=== PATIENT | female | born 1990 | race Two or more races ===

== ENCOUNTER 2025-09-01 13:33 | Inpatient (IN) | payer MEDICAID, OTHER, SELFPAY ==
--- OUTSIDE RECORDS SUMMARY | 2025-08-26 10:15 | XMS_ITS | Encounter Summary ---
Author Organization [facility] r Address [address] [place] [address] Phone Care Team Providers Care Automobile Body Repairer Helper Name Role Phone Devan Mcbride MD, MPH Primary Care Provider [phone]- [phone] Encounter Details Date Type Department Care Team (Late st Contact Info) Description 08/26/2025 10:15 AM EST - 08/26/2025 11:59 PM [facility] Hospital Encounter [facility] Breast Imaging [address]st [address], [address] [place] [address] Devan Mcbride MD, MPH [address] [place] [address] [place] [address] Mass of upper outer quadrant of left breast Discharge Disposition: Home or Self Care Social History Tobacco Use Types Packs/Day Years Used Date Smoking Tobacco: Never Smokeless Tobacco: Never Alcohol Use Standard Drinks/Week Comments Not Currently 0 (1 standard drink = 0.6 oz pur e alcohol) Occasional Housing Answer Date Recorded What is your living situation today? [facility] 04/27/2025 Medications Answer Date Recorded Do you have trouble paying for prescriptions? Ye s 04/27/2025 Utilities Answer Date Recorded Do you have trouble paying f or utilites (heat, electricity, internet, or phone bill)? No 04/27/2025 Caregiving [place] Answer Date Recorded Taking care of a child, elder, or disabled perso n No 04/27/2025 Employment Answer Date Recorded Looking for a job, changing jobs, or getting job training Yes 04/27/2025 Education Answer Date Recorded Getting more education or he lp with school (early child education under 5 years old, high school diploma or GED, college level education) Yes 04/27/2025 Food Answer Date Recorded Within the past 12 months, w ere you worried whether your food would run out before you got money to buy more? Never true 0 04/27/2025 Within the past 12 months, d id the food you bought just didn't last and you didn't have money to get more? Never true Transportation Answer Date Recorded Do you have trouble getting transportation to medical appointments? No 04/27/2025 Social Support Answer Date Recorded Getting more education or he lp with school (early child education under 5 years old, high school diploma or GED, college level education) Yes 04/27/2025 Immigration Answer Date Recorded Accessing resources to address immigration needs Yes 11/29/2023 Finance Answer Date Recorded Managing or growing your mon ey (open a bank account, file taxes, save money, improve credit, buy a house)? Yes 11/29/2023 Technology Answer Date Recorded Using a computer or phone to manage your health (use baseclick, see medical records, make appointments, get refills, message care team) No 11/29/2023 EOV Answer Date Recorded Many patients we see here ar e being hurt, controlled or threatened by someone they have a relationship with. Are you in a relationship where someone is hurting, controlling or scaring you? No 10/06/2024 Comments No Sex and Gender Information Value Date Recorded Sex Assigned at Female 11/21/2023 3:57 PM EST Legal Sex Female 10:09 AM EST Gender Identity Female 11/21/2023 3:57 PM EST Sexual Orientation Straight 04/22/2024 8 :27 AM EDT documented as of this encounter Medications at Time of Discharge acetaminophen (TYLENOL) 325 mg tabletIndications: Menorrhagia with regular cycle Take 2 tablets (650 mg total) by mouth every 6 (six) hours as needed for pain. 100 tablet 1 12/29/2024 blood pressure test kit-large (OMRON 3 SERIES UPPER ARM BLOOD PRESSURE MONITOR) Kit Use to check home blood pressure as directed 1 kit 08/08/2025 clotrimazole (LOTRIMIN) 1 % cream Apply bid to feet 30 g 1 08/17/2025 hydrocortisone 2.5 % ointmentIndication s:Flexural eczema Apply topically 2 (two) times a day. Apply to affected area only for up to 2 weeks at a time, then stop for 1 week. Then can switch to as needed for rash/itching. Continue to use moisturizer regularly to prevent return of symptoms. For neck 60 g 2 01/26/2025 mineral oil-hydrophil petrolat OintIndications:Fl exural eczema Apply to dry skin up to 4 times a day. Especially after bathing/washing 452 g 5 01/26/2025 naproxen (NAPROSYN) 500 mg tabletIndications: Costochondritis Take 1 tablet (500 mg total) by mouth 2 (two) times a day with meals for 21 days. 42 tablet 08/17/2025 multivitamin 27 mg iron- 800 mcg Tab tabletIndications: Encounter for preconception consultation Take 1 tablet by mouth daily. 90 tablet 3 05/04/2025 senna-docusate (SENNOSIDES-DOCUSA TE SODIUM) 8.6-50 mg Take 1 tablet by mouth daily. 30 tablet 1 06/20/2024 triamcinolone (KENALOG) 0.1 % ointmentIndication s:Flexural eczema Apply topically 2 (two) times a day. Apply to rash on breast and abdomen twice daily until resolved. Then stop. 80 g 2 03/18/2025 documented as of this encounter Plan of Treatment Upcoming Encounters Date Type Department Care Team (Late st Contact Info) Description 09/16/2025 10:40 AM EST Office Visit [facility] MEDICINE [address] [place] [address] China Gray PA-C [address] [place] [id number] 09/21/2025 10:15 AM EST Office Visit EDUCATION ANALYST [address] [place] [address] 5TH FLOOR [facility] Microbiological Laboratory [place] [address] Lisa Garcia MD [address] [facility] [place] [address] 10/12/2025 11:00 AM EST Office Visit [facility] [address] [place] [address] Devan Mcbride MD, MPH [address] [place] [address] documented as of this encounter Procedures Procedure Name Priority Date/Time Associated Diagnosis Comments BI US BREAST LIMITED LEFT Routine 08/26/2025 10:50 AM EST Mass of upper outer quadrant of left breast documented in this encounter Results * BI US Left Breast Limited (08/26/2025 10:50 AM EST) [facility] PATIENT HEIGHT 167.6 GE RIS-IC [facility] PATIENT WEIGHT 88.451 GE RIS-IC Anatomical Region Laterality Modality Breast Left Ultrasound 08/26/2025 10:5 9 AM EST Impressions 08/26/2025 12:59 PM EST 1. No focal mammographic or sonographic suspicious mass or abnormality corresponding to focal left breast pain. Clinical follow-up for breast pain is suggested. 2. No mammographic evidence for malignancy in either breast. BI-RADS 1 - Negative METHOD OF DETECTION: NA Recommendation: Clinical follow-up. Age and risk appropriate screening mammography. Clinical follow-up for breast pain is suggested. Findings and recommendations were communicated to the patient by the tissue technologist at the time of the exam . I personally reviewed the study and agree with the dictated report. Electronically signed by: Melody El Signed date and time: 08/26/2025 12:59 PM Narrative 08/26/2025 12:59 PM EST EXAMINATION: BILATERAL DIGITAL DIAGNOSTIC TOMOSYNTHESIS MAMMOGRAPHY AND LEFT BREAST ULTRASOUND INDICATION: Female, 35 years of age presenting for focal left breast pain. COMPARISON: 08/11/2024, BI MAMMO TOMOSYNTHESIS DIAGNOSTIC BILATERAL. TECHNIQUE: Bilateral full field digital mammography and digital breast tomosynthesis was performed and interpreted with the aid of CAD software. Yen scale 2D B-mode and Color-Doppler ultrasound images were obtained with a high-frequency linear array transducer. COMPOSITION: The breasts are heterogeneously dense, which may obscure small masses. FINDINGS: Mammogram: Left breast: Triangular pain marker in the upper outer breast is noted with no focal suspicious mammographic abnormality. Targeted ultrasound was performed for evaluation. No suspicious mass, grouped calcifications, or unexplained architectural distortion. Right breast: No suspicious mass, grouped calcifications, or unexplained architectural distortion. LEFT BREAST ULTRASOUND: Multiple real time ultrasound images were obtained of LEFT breast at the site of clinical abnormality, 12-3 o'clock 1-12 cm from the nipple. No focal cystic or solid lesions are seen, with normal breast stroma. Procedure Note Melody El MD - 08/26/2025 EXAMINATION: BILATERAL DIGITAL DIAGNOSTIC TOMOSYNTHESIS MAMMOGRAPHY AND LEFT BREASTULTRASOUND INDICATION: Female, 35 years of age presenting for focal left breast pain. COMPARISON: 08/11/2024, BI MAMMO TOMOSYNTHESIS DIAGNOSTIC BILATERAL. TECHNIQUE: Bilateral full field digital mammography and digital breast tomosynthesiswas performed and interpreted with the aid of CAD software. Yen scale 2DB-mode and Color-Doppler ultrasound images were obtained with ahigh-frequency linear array transducer. COMPOSITION: The breasts are heterogeneously dense, which may obscure small masses. FINDINGS: Mammogram: Left breast: Triangular pain marker in the upper outer breast is notedwith no focal suspicious mammographic abnormality. Targeted ultrasound wasperformed for evaluation. No suspicious mass, grouped calcifications, orunexplained architectural distortion. Right breast: No suspicious mass, grouped calcifications, or unexplainedarchitectural distortion. LEFT BREAST ULTRASOUND: Multiple real time ultrasound images were obtainedof LEFT breast at the site of clinical abnormality, 12-3 o'clock 1-12 cmfrom the nipple. No focal cystic or solid lesions are seen, with normalbreast stroma. IMPRESSION: 1. No focal mammographic or sonographic suspicious mass or abnormalitycorresponding to focal left breast pain. Clinical follow-up for breastpain is suggested. 2. No mammographic evidence for malignancy in either breast. BI-RADS 1 - Negative METHOD OF DETECTION: NA Recommendation: Clinical follow-up. Age and risk appropriate screeningmammography. Clinical follow-up for breast pain is suggested. Findings and recommendations were communicated to the patient by theimaging technologist at the time of the exam . I personally reviewed the study and agree with the dictated report. Electronically signed by: Melody El Signed date and time: 08/26/2025 12:59 PM Angelika Dugan DO IMG MAMMOGRAPHY ORD ERABLES Final Result documented in this encounter Visit Diagnoses Diagnosis Mass of upper outer quadrant of left breast documented in this encounter Additional Health Concerns Infection Onset Date Last Indicated Resolved Time COVID-19 Rule Out 12/12/2024 12/12/2024 documented as of this encounter Care Teams Automobile Body Repairer Helper Relationship Specialty Start Date End Date Devan Mcbride MD, MPH [address] [place] [address] PCP - General Family Medicine 10/06/24 documented as of this encounter
--- OUTSIDE RECORDS SUMMARY | 2025-08-27 10:00 | XMS_ITS | Encounter Summary ---
Author Organization [facility] r Address [address] [place] [address] Phone Care Team Providers Care Dish Machine Operator Name Role Phone Devan Mcbride MD, MPH Primary Care Provider [phone]- [phone] Reason for Visit * Reason Comments Patient Education HTN RPM Encounter Details Date Type Department Care Team (Late st Contact Info) Description 08/27/2025 10:00 AM EST Clinical Support [facility] [address] [place] [address] Janet Bernstein [address] [place], [place] [id number] Primary hypertension (Primary Dx) Social History Tobacco Use Types Packs/Day Years Used Date Smoking Tobacco: Never Smokeless Tobacco: Never Alcohol Use Standard Drinks/Week Comments Not Currently 0 (1 standard drink = 0.6 oz pur e alcohol) Occasional Housing Answer Date Recorded What is your living situation today? I have a [facility] place to live 04/27/2025 Medications Answer Date Recorded Do you have trouble paying for prescriptions? Ye s 04/27/2025 Utilities Answer Date Recorded Do you have trouble paying f or utilites (heat, electricity, internet, or phone bill)? No 04/27/2025 Caregiving [place] Answer Date Recorded Taking care of a [...] or phone to manage your health (use [facility], see medical records, make appointments, get refills, [...] 3:57 PM EST Sexual Orientation Straight 04/22/2024 8: 27 AM EDT documented as of this encounter Last Filed Vital Signs Vital Sign Reading Time Taken Comments Blood Pressure 121/86 08/27/2025 10:13 AM EST Pulse 84 08/27/2025 10:13 AM EST Temperature - - Respiratory Rate - - Oxygen Saturation - - Inhaled Oxygen Concentration - - Weight - - Height - - Body Mass Index - - documented in this encounter Progress Notes * Janet Bernstein - 08/27/2025 10:00 AM EST Francoise Britt is a 35 y.o. female here for home blood pressure monitoring. BP Goal: 140/90 BP Readings from Last 3 Encounters: 08/17/25 147/90 08/03/25 146/96 05/04/25 138/83 Reason for monitoring referral: Rule out white coat or masked hypertension Education Provided handout on HTN basics/blood pressure categories & reviewed BP goal. Remote Assessment Do you have a smartphone? N/A If yes, how comfortable are you with using it? N/A How is your access to the internet? N/A Do you have someone at home who helps you to access the internet? N/A Pt was offered remote set-up: N/A Pt accepted remote set-up: N/A Remote set-up successful? N/A Monitoring set-up Instructed pt on how to use meter: will take 3 readings in AM and PM for the next 10 days. Educated patient on how to: [] Transfer data electronically [x] Log readings manually Medications Pt takes medication for blood pressure: No Medication names:N/A Pt reports missing doses in the past two weeks? N/A Refill data shows HTN medications filled as prescribed in last 90 days? N/A Food Provided handout on salt intake/DASH diet. Within the past 12 months, has pt worried about running out of money to buy food? Sometimes Does the patient have consistent access to healthy, nutritious food like fresh vegetables, fruit, variety of low-fat protein? Sometimes Challenges to HTN Control For patients with diagnosed HTN -- otherwise delete: Do you feel as though your blood pressure is controlled most of the time (within goal)? N/A What are some of the challenges you face in controlling your blood pressure? N/A Do you have any suggestions for how the team at [facility] can better support you or other patients with blood pressure control? N/A Follow-Up Plan [] Patient will attempt electronic transfer; Security Operations Center Operator will follow up within 72 hours to letthem know if transfer is successful. [x] Patient will complete manual log and drop off readings at the 3rd floor registration desk. [] Security Operations Center Operator will refer to case management for help with phone/internet access. [] Security Operations Center Operator will refer to case management for help with food access. (Note: If patient has [employer] A[employer] plan, HTN or DM/pre-DM dx, and food insecurity, please alert registered nurse hh case manager that they are eligible for [employer] program referral for medically-tailored meals.) documented in this encounter Plan of Treatment Upcoming Encounters Date Type Department Care Team (Late st Contact Info) Description 09/16/2025 10:40 AM EST Office Visit [address] [phone] China Gray PA-C [address] [place] [phone] 09/21/2025 10:15 AM EST Office Visit CUSTOM STOCK MAKER [address] 5TH FLOOR [facility] [place] [address] Lisa Garcia MD [facility] [place] [address] 10/12/2025 11:00 AM EST Office Visit [address] [phone] Devan Mcbride MD, MPH [address] [place] [phone] documented as of this encounter Visit Diagnoses Diagnosis Primary hypertension- Primary Unspecified essential hypertension documented in this encounter Additional Health Concerns Infection Onset Date Last Indicated Resolved Time COVID-19 Rule Out 12/12/2024 12/12/2024 documented as of this encounter Care Teams Dish Machine Operator Relationship Specialty Start Date End Date Devan Mcbride MD, MPH [address] [place] [id number] PCP - General Family Medicine 10/06/24 documented as of this encounter
--- OUTSIDE RECORDS SUMMARY | 2025-08-31 14:53 | XMS_ITS | Encounter Summary ---
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 admission) [2] [3] [4] No family history on file. documented in this encounter ED Notes * Sam Porras RN - 09/01/2025 7:51 AM EST Pt enters my care at shift change. Resting comfortably in stretcher, arousable to spontaneous voice, no distress. Currently on 1:1 safety watch. armored vehicle officer at bedside and environment free from harm. Pt medically cleared per ED attending and an inpatient bed search for +SI attempt. electrical tester used in room - pt tearful, expressing she is not able to contact her mom who lives in [place] and usually speaks to her on what's angel. Per patient, has pt's phone attheir apartment. After inventory of patient's belongings - phone is in belongings bag. Phone given to patient for therapeutic intervention to call momCasey Pozo with [facility] crisis team at bedside to discuss POC and bed search process. Pt listed as self pay in computer - pt states to this RN that she has [employer]. Registration notified to update insurance information. Safety maintained, pt expresses no other needs at this time. Continues to remain on 1:1 sit and inpatient level of care. * Juventino Jin RN - 09/01/2025 7:04 AM EST Pt exits my care and report given to Shikha morgan * Juventino Jin RN - 09/01/2025 12:51 AM EST Assumed care of pt. Report received from Victorino morgan Pt remains on safety watch * Victorino Huber RN - 09/01/2025 12:07 AM EST Pt belongings in bin #3 * Victorino Huber RN - 08/31/2025 5:12 PM EST Pt BIBA from home after ingesting a 50 count bottle of 200mg motrin. Pt portuguese speaking only. Back Order Clerk at bedside. Pt denies SI/HI to this RN and MD during assessment. Pt denies any CP/SOB/F/C. Pt reports hx of bipolar with no medications prescribed by psychiatrist. On assessment, pt is A&Ox4 with no signs of distress. Pt is talking in complete sentences. Pt on monitor, sinus tach, MD made aware. Pt given Activated charcoal as ordered. Abd is soft, round, non distended. consult completed. Labs drawn. Urine sample obtained. Pt on 2:1 safety watch. Dispo pending MD re-eval. Fall precautions in place. Pt denies any questions or needs at this time. * Victorino Huber RN - 08/31/2025 2:54 PM EST From home, placed on section by Jim. Pt had verbal argument earlier today with boyfriend, pt called mom and said that she has nothing left to live for. Pt's boyfriend returned home to find that travis ingested 50 200mg motrin tabs. Belarusian speaking only. Ambulatory on scene A&Ox4. Refusing to answer questions. * Micah Davila MD - 08/31/2025 2:49 PM EST [facility] EMERGENCY DEPARTMENT ED Provider Note Arrival date: 08/31/2025 HISTORY OF PRESENT ILLNESS Discussion with Independent Historian : EMS- report reviewedworked with electrical tester Patient is a 35 y.o. female with a history of high blood pressure and bipolar disorder the emergency department for evaluation of an overdose. Reportedly took 50 tablets of 200 mg ibuprofen. EMS wascalled. Brought to the ED. Reportedly took the medication 30 minutes prior to arrival. States she has multiple stressors at home. Denying any homicidal ideations no auditory hallucinations. Tearful throughout the exam. PHYSICAL EXAM ED Triage Vitals [08/31/25 1458] BP Heart Rate Resp Temp SpO2 (!) 164/97 (!) 99 15 -- 100 % Physical Exam Vitals reviewed. Constitutional: Appearance: Normal appearance. HENT: Head: Normocephalic and atraumatic. Mouth: Mucous membranes are moist. Pulmonary: Effort: Pulmonary effort is normal. Respirations: Clear to auscultation bilaterally Cardiac: Tachycardic Abdominal: Soft, non-tender x 4 quad Musculoskeletal: General: No swelling. Normal range of motion. Cervical back: Normal range of motion. Skin: General: Skin is warm and dry. Neurological: General: No focal deficit present. Mental Status: Alert and oriented to person, place, and time. Strength: 5/5 x 4 limbs Sensation: Intact. Psychiatric: Tearful RESULTS Labs BASIC METABOLIC PANEL - Abnormal Result Value Ref Range Sodium 138 135 - 146 mmol/L Potassium 4.5 3.4 - 5.2 mmol/L Chloride 101 98 - 110 mmol/L Total CO2/Bicarbonate 26 24 - 32 mmol/L Anion Gap 11 2 - 15 mmol/L BUN 12 6 - 20 mg/dL Creatinine, Blood 0.80 0.50 - 1.10 mg/dL Glucose, Blood 107 (*) 70 - 100 mg/dL Calcium 9.8 8.5 - 10.5 mg/dL Estimated GFR(CKD-EPI) 97 >=60 mL/min/BSA TOXICOLOGY SCREEN, BLOOD - Abnormal Acetaminophen Result,Blood <5 (*) 10 - 30 ug/mL Alcohol <10 <10 mg/dL Salicylate Level, Blood <1 <30 mg/dL CBC AND DIFFERENTIAL - Abnormal WBC 10.85 (*) 3.90 - 10.80 K/uL RBC 5.21 4.20 - 5.60 M/uL Hemoglobin 13.7 12.0 - 15.2 g/dL Hematocrit 43.0 35.0 - 45.0 % MCH 26.3 25.6 - 32.2 pg MCHC 31.9 (*) 32.0 - 36.0 g/dL MCV 83 82 - 102 fL RDW 13.2 12.0 - 15.0 % RDW-SD 39.4 32.9 - 69.6 fL Platelet Count 240 150 - 400 K/uL MPV 11.1 8.5 - 13.0 fL Neutrophil 81.7 (*) 43.0 - 74.0 % Lymphocyte 14.3 (*) 17.0 - 47.0 % Monocyte 3.1 (*) 5.0 - 12.0 % Eosinophil 0.3 0.1 - 6.0 % Basophil 0.3 0.0 - 2.0 % Immature Granulocyte ([place], Myelo, Promyelocyte) 0.3 0.0 - 5.0 % Absolute Neutrophil Count 8.87 (*) 1.50 - 8.10 K/uL Absolute Immature Granulocyte ([place], Myelo, Promyelocyte) 0.03 0.00 - 0.66 K/uL Absolute Lymphocyte Count 1.55 0.95 - 4.20 K/uL Absolute Monocyte Count 0.34 0.20 - 1.20 K/uL Absolute Eosinophil Count 0.03 (*) 0.06 - 0.60 K/uL Absolute Basophil Count 0.03 0.01 - 0.12 K/uL HCG, SERUM, QUALITATIVE - Normal HCG, Qualitative, Serum Negative Negative SARS COV2/INFLUENZA A/B AND RSV - Normal Coronavirus SARS-CoV-2 Negative Negative Influenza A Negative Negative Influenza B Negative Negative RSV by PCR Negative Negative Narrative: Test performed with [employer] GeneXpert SARS-CoV-2 PCR assay. Negative results do not preclude SARS-CoV-2 infections and should not be used as the sole basis for treatment or other patient management decisions. DRUG SCREEN, URINE Amphetamines Screen, Urine Negative Negative Barbiturates Screen, Urine Negative Negative Benzodiazepine Screen, Urine Negative Negative Buprenorphine Screen, Urine Negative Negative Cannabinoids Screen, Urine Negative Negative Cocaine Metabolite Screen, Urine Negative Negative Fentanyl Screen, Urine Negative Negative Methadone Screen, Urine Negative Negative Opiates Screen, Urine Negative Negative Oxycodone Screen, Urine Negative Negative Comment Comment: The cut-off concentration for a positive result for each drug is listed below: Drug Cut-off value Amphetamines >1000 ng/mL Barbiturates >200 ng/mL Benzodiazepines >300 ng/mL Buprenorphine >5 ng/mL Cannabinoids >50 ng/mL Cocaine >300 ng/mL Fentanyl >5.0 ng/mL Opiates >300 ng/mL Methadone >300 ng/mL Oxycodone >100 ng/mL This is only a screening; positive results are not confirmed by a second method; The results must be used for medical purposes only. ACETAMINOPHEN LEVEL CBC AND DIFFERENTIAL Narrative: The following orders were created for panel order CBC and Differential. Procedure Abnormality Status --------- ------ CBC and Differential[[id number]] Abnormal Final result Please view results for these tests on the individual orders. and ECG 12 lead Result Date: 08/31/2025 See ED note for ECG result information. MEDICAL DECISION MAKING Differential Diagnosis Includes : Suicide attempt overdose intentional harm depression This is a 35-year-old in the emergency department for evaluation of a overdose. Reportedly of ibuprofen. Will attempt to confirm with family. Ordered for charcoal as the ingestion happened less than 2 hours prior to arrival. Sitter per protocol. Patient evaluated by behavioral health. Medically cleared. Placed in observation. Awaiting psychiatric placement. ED Course as of 08/31/25 1754 Mon Aug 31, 2025 1553 Independent ED EKG interpretation: Normal sinus rhythm at 69 normal axis normal intervals, no acute ischemia [AL] 1726 Discussed with behavioral health: Needs inpatient level of care [AL] 1741 Patient is medically cleared [AL] 1741 Acetaminophen Result,Blood(!): <5 [AL] ED Course User Index [AL] Micah Davila MD Independent interpretation of studies : EKG: see included interpretation Review of Outside Records : PDMP: No concerning prescribing pattern Discussion with Other Healthcare Provider : Behavioral Health provider: Patient's presentation and condition management discussed Escalation of care, including admission/Obs considered : Placed in observation status until behavioral health placement can be obtained Critical Care Procedure Note Authorized and Performed by: Micah Davila MD Total critical care time: Approximately 75 minutes Due to a high probability of clinically significant, life threatening deterioration, the patient required my highest level of preparedness to intervene emergently and I personally spent this criticalcare time directly and personally managing the patient. This critical care time included obtaining a history; examining the patient; pulse oximetry; ordering and review of studies; arranging urgent treatment with development of a management plan; evaluation of patient's response to treatment; frequent reassessment; and, discussions with other providers. This critical care time was performed to assess and manage the high probability of imminent, life-threatening deterioration that could result in multi-organ failure. It was exclusive of separately billable procedures and treating other patients and teaching time. Please see MDM section and the rest of the note for further information on patient assessment and treatment. Clinical Impression Intentional ibuprofen overdose, initial encounter ([facility]) (Primary) Suicide attempt ([facility]) Micah Davila MD 08/31/25 223 documented in this encounter Miscellaneous Notes * ED Obs Note - Rivas Ko MD - 09/01/2025 8:49 AM EST ED OBSERVATION NOTE Date of service: 08/31/2025 [facility] EMERGENCY DEPARTMENT EMERGENCY DEPARTMENT ENCOUNTER HPI MDM contains a medically complete HPI; please see initial HPI/note for further details. PHYSICAL EXAM Vitals: 09/01/25 0527 BP: 120/70 Pulse: 70 Resp: 16 SpO2: 100% General: No acute distress HEENT: Normal Appearing Eyelids Neck: Supple Respiratory: No respiratory distress Cardio-Vascular: Normal Rate Abdomen: Non-distended Neurological: No focal neurological deficits appreciated Skin: Warm, Dry ED COURSE & MEDICAL DECISION MAKING Labs BASIC METABOLIC PANEL - Abnormal Result Value Ref Range Sodium 138 135 - 146 mmol/L Potassium 4.5 3.4 - 5.2 mmol/L Chloride 101 98 - 110 mmol/L Total CO2/Bicarbonate 26 24 - 32 mmol/L Anion Gap 11 2 - 15 mmol/L BUN 12 6 - 20 mg/dL Creatinine, Blood 0.80 0.50 - 1.10 mg/dL Glucose, Blood 107 (*) 70 - 100 mg/dL Calcium 9.8 8.5 - 10.5 mg/dL Estimated GFR(CKD-EPI) 97 >=60 mL/min/BSA TOXICOLOGY SCREEN, BLOOD - Abnormal Acetaminophen Result,Blood <5 (*) 10 - 30 ug/mL Alcohol <10 <10 mg/dL Salicylate Level, Blood <1 <30 mg/dL CBC AND DIFFERENTIAL - Abnormal WBC 10.85 (*) 3.90 - 10.80 K/uL RBC 5.21 4.20 - 5.60 M/uL Hemoglobin 13.7 12.0 - 15.2 g/dL Hematocrit 43.0 35.0 - 45.0 % MCH 26.3 25.6 - 32.2 pg MCHC 31.9 (*) 32.0 - 36.0 g/dL MCV 83 82 - 102 fL RDW 13.2 12.0 - 15.0 % RDW-SD 39.4 32.9 - 69.6 fL Platelet Count 240 150 - 400 K/uL MPV 11.1 8.5 - 13.0 fL Neutrophil 81.7 (*) 43.0 - 74.0 % Lymphocyte 14.3 (*) 17.0 - 47.0 % Monocyte 3.1 (*) 5.0 - 12.0 % Eosinophil 0.3 0.1 - 6.0 % Basophil 0.3 0.0 - 2.0 % Immature Granulocyte ([place], Myelo, Promyelocyte) 0.3 0.0 - 5.0 % Absolute Neutrophil Count 8.87 (*) 1.50 - 8.10 K/uL Absolute Immature Granulocyte ([place], Myelo, Promyelocyte) 0.03 0.00 - 0.66 K/uL Absolute Lymphocyte Count 1.55 0.95 - 4.20 K/uL Absolute Monocyte Count 0.34 0.20 - 1.20 K/uL Absolute Eosinophil Count 0.03 (*) 0.06 - 0.60 K/uL Absolute Basophil Count 0.03 0.01 - 0.12 K/uL ACETAMINOPHEN LEVEL - Abnormal Acetaminophen Result,Blood <5 (*) 10 - 30 ug/mL HCG, SERUM, QUALITATIVE - Normal HCG, Qualitative, Serum Negative Negative SARS COV2/INFLUENZA A/B AND RSV - Normal Coronavirus SARS-CoV-2 Negative Negative Influenza A Negative Negative Influenza B Negative Negative RSV by PCR Negative Negative Narrative: Test performed with [employer] GeneXpert SARS-CoV-2 PCR assay. Negative results do not preclude SARS-CoV-2 infections and should not be used as the sole basis for treatment or other patient management decisions. DRUG SCREEN, URINE Amphetamines Screen, Urine Negative Negative Barbiturates Screen, Urine Negative Negative Benzodiazepine Screen, Urine Negative Negative Buprenorphine Screen, Urine Negative Negative Cannabinoids Screen, Urine Negative Negative Cocaine Metabolite Screen, Urine Negative Negative Fentanyl Screen, Urine Negative Negative Methadone Screen, Urine Negative Negative Opiates Screen, Urine Negative Negative Oxycodone Screen, Urine Negative Negative Comment Comment: The cut-off concentration for a positive result for each drug is listed below: Drug Cut-off value Amphetamines >1000 ng/mL Barbiturates >200 ng/mL Benzodiazepines >300 ng/mL Buprenorphine >5 ng/mL Cannabinoids >50 ng/mL Cocaine >300 ng/mL Fentanyl >5.0 ng/mL Opiates >300 ng/mL Methadone >300 ng/mL Oxycodone >100 ng/mL This is only a screening; positive results are not confirmed by a second method; The results must be used for medical purposes only. CBC AND DIFFERENTIAL Narrative: The following orders were created for panel order CBC and Differential. Procedure Abnormality Status --------- ------ CBC and Differential[[id number]] Abnormal Final result Please view results for these tests on the individual orders. No orders to display 35-year-old female in ED observation for psychiatric evaluation after ibuprofen overdose. Medicallycleared from the standpoint of such. The patient's initial ED note, vital signs, and lab results were reviewed and interpreted. The patient was reevaluated. I agree with medical clearance. Patient's behavioral condition continues to be unstable. The patient requires further observation to help determine final disposition. We will monitor the patient for significant changes in medical or psychiatric status, observe and treat for agitation, psychosis or withdrawal, coordinate care with the mental health team and ensure the patient'ssafety. Psychiatry has completed their evaluation. They have found a bed for the patient at [facility]. Accepting MD Lopez. Will transfer by S[employer] farm product purchaser utilized. Clinical Impression Intentional ibuprofen overdose, initial encounter ([facility]) (Primary) Suicide attempt ([facility]) Rivas Ko MD 09/01/25 1006 documented in this encounter Plan of Treatment Not on file documented as of this encounter Procedures Procedure Name Priority Date/Time Associated Diagnosis Comments ACETAMINOPHEN LEVEL STAT 08/31/2025 5 :48 PM EST ECG 12-LEAD STAT 08/31/2025 3:49 PM EST CBC AND DIFFERENTIAL STAT 08/31/2025 3:46 PM EST TOXICOLOGY SCREEN, BLOOD STAT 08/31/2025 3:46 PM EST CBC AND DIFFERENTIAL STAT 08/31/2025 3:46 PM EST HCG, SERUM, QUALITATIVE STAT 08/31/2025 3:46 PM EST BASIC METABOLIC PANEL STAT 08/31/2025 3:46 PM EST SARS COV2/INFLUENZA A/B AND RSV STAT 08/31/2025 3:41 PM EST DRUG SCREEN, URINE STAT 08/31/2025 3: 40 PM EST documented in this encounter Results * (ABNORMAL) Acetaminophen Level (08/31/2025 5:48 PM EST) Acetaminophen Result,Blood <5(L) 10 - 30 ug/mL 08/31/2025 6:42 PM EST [facility] Blood PERIPHERAL BLOOD SPECIMEN / Unknown Venipuncture / Unknown 08/31/2025 5:48 PM EST 08/31/2025 5:56 PM EST Micah Davila MD LAB BLOOD ORDERABLES Final Res ult [facility] [address] [place] [address], [place] * ECG 12 lead (08/31/2025 3:49 PM EST) 08/31/2025 3:50 PM EST Narrative [facility] CV BIDM ECG - 08/31/2025 3:49 PM EST See ED note for ECG result information. us Micah Davila MD ECG ORDERABLES Final Result [facility]IL[facility] CV BIDM ECG * (ABNORMAL) CBC and Differential (08/31/2025 3:46 PM EST) WBC 10.85(H) 3.90 - 10.80 K/uL 08/31/2025 4:10 PM [facility] RBC 5.21 4.20 - 5.60 M/uL 08/31/2025 4:10 PM [facility] Hemoglobin 13.7 12.0 - 15.2 g/dL 08/31/2025 4:10 PM [facility] Hematocrit 43.0 35.0 - 45.0 % 08/31/2025 4:10 PM [facility] MCH 26.3 25.6 - 32.2 pg 08/31/2025 4:10 PM [facility] MCHC 31.9(L) 32.0 - 36.0 g/dL 08/31/2025 4:10 PM [facility] MCV 83 82 - 102 fL 08/31/2025 4:10 PM [facility] RDW 13.2 12.0 - 15.0 % 08/31/2025 4:10 PM [facility] RDW-SD 39.4 32.9 - 69.6 fL 08/31/2025 4:10 PM [facility] Platelet Count 240 150 - 400 K/uL 08/31/2025 4:10 PM [facility] MPV 11.1 8.5 - 13.0 fL 08/31/2025 4:10 PM [facility] Neutrophil 81.7(H) 43.0 - 74.0 % 08/31/2025 4:10 PM [facility] Lymphocyte 14.3(L) 17.0 - 47.0 % 08/31/2025 4:10 PM [facility] Monocyte 3.1(L) 5.0 - 12.0 % 08/31/2025 4:10 PM [facility] Eosinophil 0.3 0.1 - 6.0 % 08/31/2025 4:10 PM [facility] Basophil 0.3 0.0 - 2.0 % 08/31/2025 4:10 PM [facility] Immature Granulocyte ([place], Myelo, Promyelocyte) 0.3 0.0 - 5.0 % 08/31/2025 4:10 PM [facility] Absolute Neutrophil Count 8.87(H) 1.50 - 8.10 K/uL 08/31/2025 4:10 PM [facility] Absolute Immature Granulocyte ([place], Myelo, Promyelocyte) 0.03 0.00 - 0.66 K/uL 08/31/2025 4:10 PM [facility] Absolute Lymphocyte Count 1.55 0.95 - 4.20 K/uL 08/31/2025 4:10 PM [facility] Absolute Monocyte Count 0.34 0.20 - 1.20 K/uL 08/31/2025 4:10 PM [facility] Absolute Eosinophil Count 0.03(L) 0.06 - 0.60 K/uL 08/31/2025 4:10 PM [facility] Absolute Basophil Count 0.03 0.01 - 0.12 K/uL 08/31/2025 4:10 PM [facility] Blood PERIPHERAL BLOOD SPECIMEN / Unknown Venipuncture / Unknown 08/31/2025 3:46 PM EST 08/31/2025 4:03 PM EST us Micah Davila MD LAB BLOOD ORDERABLES Final Res ult [facility] [address] [place] [address], [place] * HCG, serum, QUALitative (08/31/2025 3:46 PM EST) Pathologist [facility] HCG, Qualitative, Serum Negative Negative 08/31/2025 4:38 PM EST [facility] Blood PERIPHERAL BLOOD SPECIMEN / Unknown Venipuncture / Unknown 08/31/2025 3:46 PM EST 08/31/2025 4:03 PM EST us Micah Davila MD LAB BLOOD ORDERABLES Final Res ult Performing Organization Address [facility] Co de Phone Number [facility] [address] [place] [address], [place] * (ABNORMAL) Plasma Toxicology Screen (08/31/2025 3:46 PM EST) [facility] Acetaminophen Result,Blood <5(L) 10 - 30 ug/mL 08/31/2025 4:38 PM EST [facility] Alcohol <10 <10 mg/dL 08/31/2025 4:38 PM [facility] Salicylate Level, Blood <1 <30 mg/dL 08/31/2025 4:38 PM [facility] Blood PERIPHERAL BLOOD SPECIMEN / Unknown Venipuncture / Unknown 08/31/2025 3:46 PM EST 08/31/2025 4:03 PM EST us Micah Davila MD LAB BLOOD ORDERABLES Final Res ult Performing Organization Address [facility] de Phone Number [facility] [address] [place] [address], [place] * (ABNORMAL) Basic Metabolic Panel (08/31/2025 3:46 PM EST) [facility] Sodium 138 135 - 146 mmol/L 08/31/2025 4:35 PM [facility] Potassium 4.5 3.4 - 5.2 mmol/L 08/31/2025 4:35 PM [facility] Chloride 101 98 - 110 mmol/L 08/31/2025 4:35 PM [facility] Total CO2/Bicarbonat e 26 24 - 32 mmol/L 08/31/2025 4:35 PM [facility] Anion Gap 11 2 - 15 mmol/L 08/31/2025 4:35 PM [facility] BUN 12 6 - 20 mg/dL 08/31/2025 4:35 PM [facility] Creatinine, Blood 0.80 0.50 - 1.10 mg/dL 08/31/2025 4:35 PM [facility] Glucose, Blood 107(H) 70 - 100 mg/dL 08/31/2025 4:35 PM [facility] Calcium 9.8 8.5 - 10.5 mg/dL 08/31/2025 4:35 PM [facility] Estimated GFR(CKD-EPI) 97 >=60 mL/min/BSA 08/31/2025 4:35 PM [facility] Blood PERIPHERAL BLOOD SPECIMEN / Unknown Venipuncture / Unknown 08/31/2025 3:46 PM EST 08/31/2025 4:03 PM EST us Micah Davila MD LAB BLOOD ORDERABLES Final Res ult [facility] [address] [place] [address], * Covid/Flu/RSV (Rapid) (08/31/2025 3:41 PM EST) Coronavirus SARS-CoV-2 Negative Negative 08/31/2025 4:49 PM [facility] Influenza A Negative Negative 08/31/2025 4:49 PM [facility] Influenza B Negative Negative 08/31/2025 4:49 PM [facility] RSV by PCR Negative Negative 08/31/2025 4:49 PM [facility] Respiratory SWAB OF INTERNAL NOSE / Unknown Collection / Unknown 08/31/2025 3:41 PM EST 08/31/2025 3:52 PM EST [facility] - 08/31/2025 4:49 PM EST Test performed with [employer] Gene[employer]pert SARS-CoV-2 PCR assay. Negative results do not preclude SARS-CoV-2 infections and should not be used as the sole basis for treatment or other patient management decisions. us Micah Davila MD BODY FLUIDS AND STOOLS ORDERAB LES Final Result Performing Organization Address [facility]/ZIP Co de Phone Number [facility] [address] [place] [address], [place] * Drug Screen, Urine (08/31/2025 3:40 PM EST) Amphetamines Screen, Urine Negative Negative 08/31/2025 4:52 PM [facility] Barbiturates Screen, Urine Negative Negative 08/31/2025 4:52 PM [facility] Benzodiazepine Screen, Urine Negative Negative 08/31/2025 4:52 PM [facility] Buprenorphine Screen, Urine Negative Negative 08/31/2025 4:52 PM [facility] Cannabinoids Screen, Urine Negative Negative 08/31/2025 4:52 PM [facility] Cocaine Metabolite Screen, Urine Negative Negative 08/31/2025 4:52 PM [facility] Fentanyl Screen, Urine Negative Negative 08/31/2025 4:52 PM [facility] Methadone Screen, Urine Negative Negative 08/31/2025 4:52 PM [facility] Opiates Screen, Urine Negative Negative 08/31/2025 4:52 PM [facility] Oxycodone Screen, Urine Negative Negative 08/31/2025 4:52 PM [facility] Comment 08/31/2025 4:52 PM [facility] Comment: The cut-off concentration for a positive result for each drug is listed below: Drug Cut-off value Amphetamines >1000 ng/mL Barbiturates >200 ng/mL Benzodiazepines >300 ng/mL Buprenorphine >5 ng/mL Cannabinoids >50 ng/mL Cocaine >300 ng/mL Fentanyl >5.0 ng/mL Opiates >300 ng/mL Methadone >300 ng/mL Oxycodone >100 ng/mL This is only a screening; positive results are not confirmed by a second method; The results must be used for medical purposes only. Urine URINE SPECIMEN / Unknown Collection / Unknown 08/31/2025 3:40 PM EST 08/31/2025 3:53 PM EST us Micah Davila MD URINE ORDERABLES Final Result Performing Organization Address [facility]/State/ZIP Co de Phone Number [facility] [address] [place] [address], [place] documented in this encounter Visit Diagnoses Diagnosis Intentional ibuprofen overdose, initial encounter ([facility])- Primary Suicide attempt ([facility]) Suicide and self-inflicted injury by unspecified means Depression, unspecified depression type documented in this encounter Administered Medications Inactive Administered Medications - up to 3 most recent administrations Medication Order MAR Action Action Date Dose Rate Site activated charcoal-sorbitoL (ACTIDOSE-SORBITOL) 50 gram/240 mL suspension 50 g 50 g, Oral, Once, 1 dose, On 08/31/25 at 1533 Given 08/31/2025 3:47 PM EST 50 g documented in this encounter Active and Recently Administered Medications Times are shown in EST. Scheduled Medication Order 08/30/2025 08/31/2025 09/01/2025 activated charcoal-sorbitoL (ACTIDOSE-SORBITOL) 50 gram/240 mL suspension 50 g (COMPLETED) 50 g, Oral, Once, 1 dose, On Sun08/31/25 at 1533 1547 (Given - Provider: Brooklyn Huber RN) documented in this encounter Additional Health Concerns Infection Onset Date Last Indicated Resolved Time Rule-Out Respiratory Virus 08/31/2025 08/31/2025 1 10/31/2024 4:49 PM EST documented as of this encounter Care Teams Piledriver Carpenter Relationship Specialty Start Date End Date Unknown, Provider, [address] [place] [id number] PCP - General 08/31/25 documented as of this encounter
[2025-09-01 14:00] VITALS: BP 172/94; PULSE 94; RESP 18; TEMP 36.6; O2SAT 100
[2025-09-01 14:26] VITALS: BMI 30.3
--- NOTE | 2025-09-01 15:17 | P.HPPS_ITS ---
HPI Date of Service: 09/01/25 Chief Complaint: depression, unspecified Sources of Information: patient interviewed, chart reviewed and crisis/core team assessment reviewed HPI Subjective Notes: Lyman Warning and Conditional Voluntary Narrative: Patient is a 35 year old female with hx of Bipolar d/o, who presented to ER d/t overdose on ibuprofen secondary to verbal argument with boyfriend. Per crisis report, pt had a verbal argument with boyfriend; pt called her mother and said she has nothing left to live for . Patient reports she ingested a whole bottle of pills due to ongoing stressors. She described longstanding conflict with one male roommate related to shared cleaning responsibilities. During argument, pt's boyfriend took her keys to the apartment and told her to leave. pt states she went to the basement without her boyfriends knowledge and ingested the pills. She reported telling him she had taken 50 200mg Motrin tablets, after which he called EMS. Patient denies SI/HI/VH/AH. Utox negative. During admission assessment, site interpreter present. Patient reports she took 5 ibuprofen due to having a headache and her boyfriend called the police because he thought I took more pills . Patient stated she hid in the basement when police arrived because she got scared . Patient stated, I was not trying to harm myself. I took 5 pills before the police arrived. I then went to the basement and took 5 additional pills and threw them up. I did it in a moment of desperation. It's the 1st time something like that went through my mind . Patient continuously reports this was not a suicide attempt. She reports she is not interested in any psychiatric medications but would like a referral for a therapist in her area. She denies SI/HI/VH/AH. Past Psychiatric History: denies hx of IPLOC. does not have outpatient psychiatric providers. denies hx of SA/SIB. denies hx of psychiatric medications. Medical Evaluation Reviewed: Yes PMFSH Family History: denies Social History: Lives with boyfriend and his friend. Single. no kids. unemployed. high school diploma. Substance History: denies Trauma History: denies Diagnostics Vital Signs (24Hr): Vital Signs - 24 hr 09/01/25 14:00 Temperature 97.9 F Pulse Rate 94 Respiratory Rate 18 Blood Pressure 172/94 H Pulse Oximetry 100 Oxygen Delivery Method Room Air BMI result Body Mass Index 30.3 Meds/Allergies Allergies Allergies Allergy/AdvReac Type Severity Reaction Status Date / Time No Known Allergies Allergy Verified 09/01/25 14:04 Mental Status Exam Mental Status Exam Patient Appearance: Appropriate Patient Orientation: Person, Place, Time and Situation Level of Consciousness: Awake and Alert Patient Behavior: Appropriate, Guarded, Cooperative and Good Eye Contact Mood Description: Anxious Affect Description: Anxious Ability to Follow Directions: Good Speech Pattern: Clear Memory Description: Intact Hallucinations: None Delusions: Not Present Thought Process: Intact Thought Content: positive for Intact Assessment & Plan Assessment & Plan (1) MDD (major depressive disorder), recurrent episode, severe: Status: Acute Code(s): F33.2 - Major depressive disorder, recurrent severe without psychotic features Plan Patient is a 35 year old female with hx of Bipolar d/o, who presented to ER d/t overdose on ibuprofen secondary to verbal argument with boyfriend. Plan: CV 15 minute safety checks Obtain collateral Continue to discuss possible need of psychiatric medication Referral to outpatient psychiatric providers Encourage groups Discharge planning Patient educated on: diagnosis and medication risk/benefits Reason for continued inpatient stay Substantial Risk for: harm to self and med/psych decompensation Statement Statement: I have reviewed the history and physical and performed a pertinent examination on my patient. No changes have occurred unless specified. If the History and Physical was not performed prior to admission, the Hospitalist's service will be consulted for completing the admission physical. Time Spent With Patient Time: Total time managing care of this patient today _60___ minutes.
--- NOTE | 2025-09-01 16:56 | PC.ADMIT ---
Patient 35 year old female, Greek speaking only, with history of hypertension, was transferred from [facility] for SI, after ingesting 50 count Motrin pills of 200mg. On evaluation patient reported it was an acute emotional distress related to a conflict involving a rented kitchen space shared with her boyfriend's friend, she reported feeling overwhelmed and desperate during which she ingested the Motrin impulsively while experiencing suicidal thoughts. Although the ingestions not medically lethal , she stated that it reflected the intensity of her distress at that time. She denies active SI/HI, without any plan, she was cooperative, tearful, and visibly with a distress mood, constricted affect, suspicious, fearful, she demonstrated limited judgment during the incident but expressed improve insight. Given the recent ingestion, acute stressors, impair coping, and expressed suicidal thought, after evaluation, the Care team decided her admission for safety and management. Patient was admitted to at 13:50 PM on a CV today, skin check was fine, no bruises, patient mental status depressed and sad after the failed SI, no history of fall in the last 6 months, no previous psychiatric hospitalization.
--- OUTSIDE RECORDS SUMMARY | 2025-09-01 17:34 | XMS_ITS | Encounter Summary ---
Author Organization [facility] r Address [address] [place] [address] Phone Care Team Providers Care Olive Picker Name Role Phone Mckenzie Witt MD Primary Care Provider [phone] Devan Mcbride MD, MPH Primary Care Provider [phone] Reason for Visit * Reason Onset Date Comments Appointment 01/23/2024 Urgent ref Encounter Details Date Type Department Care Team (Late st Contact Info) Description 01/23/2024 [address]ER [address] [facility], 5TH FLOOR [facility] [place] [address] Pcp-Confirmed, No Appointment (Urgent ref) Social History Tobacco Use Types Packs/Day Years Used Date Smoking Tobacco: Never Alcohol Use Standard Drinks/Week Comments Never 0 (1 standard drink = 0.6 oz pur e alcohol) Housing Answer Date Recorded What is your living situation today? I have a [facility] place to live 11/29/2023 Medications Answer Date Recorded Do you have trouble paying for prescriptions? No 11/29/2023 Utilities Answer Date Recorded Do you have trouble paying f or utilites (heat, electricity, internet, or phone bill)? No 11/29/2023 Caregiving [place] Answer Date Recorded Taking care of a child, elder, or disabled perso n No 11/29/2023 Employment Answer Date Recorded Looking for a job, changing jobs, or getting job training Yes 11/29/2023 Education Answer Date Recorded Getting more education or he lp with school (early child education under 5 years old, high school diploma or GED, college level education) Yes 11/29/2023 Food Answer Date Recorded Within the past 12 months, w ere you worried whether your food would run out before you got money to buy more? Never true 0 11/29/2023 Within the past 12 months, d id the food you bought just didn't last and you didn't have money to get more? Never true Transportation Answer Date Recorded Do you have trouble getting transportation to medical appointments? No 11/29/2023 Social Support Answer Date Recorded Getting more education or he lp with school (early child education under 5 years old, high school diploma or GED, college level education) Yes 11/29/2023 Immigration Answer Date Recorded Accessing resources to address immigration needs Yes 11/29/2023 Finance Answer Date Recorded Managing or growing your mon ey (open a bank account, file taxes, save money, improve credit, buy a house)? Yes 11/29/2023 Technology Answer Date Recorded Using a computer or phone to manage your health (use [employer], see medical records, make appointments, get refills, message care team) No 11/29/2023 Comments Unknown Sex and Gender Information Value Date Recorded Sex Assigned at Female 11/21/2023 3:57 PM EST Legal Sex Female 10:09 AM EST Gender Identity Female 11/21/2023 3:57 PM EST Sexual Orientation Straight 04/22/2024 8: 27 AM EDT documented as of this encounter Miscellaneous Notes * Telephone Encounter - Haley Espinal - 01/29/2024 6:26 PM EDT Spoke with patient and informed that we have received a referral for Ovarian mass, at this time we dont have available appointment for new casino controller in which she will be placed on the new patient wait list. Patient agreed and understood * Telephone Encounter - Seb Arias - 01/23/2024 9:21 AM EDT Patient Reported Reason for Call Patient presents with Appointment Urgent ref pt calling w/ sloven[facility] inter pt has urgent referral : Ovarian Cyst psr unable to find anything within appropriate time frame. Please assist Please call pt at : [phone] documented in this encounter Plan of Treatment Upcoming Encounters Date Type Department Care Team (Late st Contact Info) Description 09/16/2025 10:40 AM EST Office Visit [address] [phone] China Gray PA-C [address] [place] [phone] 09/21/2025 10:15 AM EST Office Visit FOCUS PULLER [address] [facility], 5TH FLOOR [facility] [place] [address] [place] [address] 10/12/2025 11:00 AM EST Office Visit [address] [phone] Devan Mcbride MD, MPH [address] [place] [address] documented as of this encounter Visit Diagnoses Not on filedocumented in this encounter Additional Health Concerns Infection Onset Date Last Indicated Resolved Time COVID-19 Rule Out 10/06/2024 10/06/2024 10/06/2024 8:34 PM EST COVID-19 Rule Out 12/12/2024 12/12/2024 documented as of this encounter Care Teams Olive Picker Relationship Specialty Start Date End Date [place] [address] PCP - General Internal Medicine 11/29/23 02/19/24 Devan Mcbride MD, MPH [address] [place] [phone] PCP - General Family Medicine 10/06/24 documented as of this encounter
--- OUTSIDE RECORDS SUMMARY | 2025-09-01 17:34 | XMS_ITS | Encounter Summary ---
Author Organization [facility] r Address [address] [place] [address] Phone Care Team Providers Care Sports Leadership Instructor Name Role Phone Devan Mcbride MD, MPH Primary Care Provider [phone] Reason for Visit * Reason Onset Date Comments Er F/u 10/07/2024 Chest pain, unsp ecified type Encounter Details Date Type Department Care Team (Late st Contact Info) Description 10/07/2024 Telephone [facility] MEDICINE [address] [place] [address] Devan Mcbride MD, MPH [address] [place] [address] Er F/u (Chest pain, unspecified type) Social History Tobacco Use Types Packs/Day Years Used Date Smoking Tobacco: Never Smokeless Tobacco: Never Alcohol Use Standard Drinks/Week Comments Not Currently 0 (1 standard drink = 0.6 oz pur e alcohol) Occasional Housing Answer Date Recorded What is your living situation today? I have a [facility] to live 10/06/2024 Medications Answer Date Recorded Do you have trouble paying for prescriptions? No 10/06/2024 Utilities Answer Date Recorded Do you have trouble paying f or utilites (heat, electricity, internet, or phone bill)? No 10/06/2024 Caregiving [place] Answer Date Recorded Taking care of a child, elder, or disabled perso n No 02/25/2024 Employment Answer Date Recorded Looking for a job, changing jobs, or getting job training Yes 02/25/2024 Education Answer Date Recorded Getting more education or he lp with school (early child education under 5 years old, high school diploma or GED, college level education) Yes 02/25/2024 Food Answer Date Recorded Within the past 12 months, w ere you worried whether your food would run out before you got money to buy more? Never true 1 Within the past 12 months, d id the food you bought just didn't last and you didn't have money to get more? Sometimes true Transportation Answer Date Recorded Do you have trouble getting transportation to medical appointments? No 10/06/2024 Social Support Answer Date Recorded Getting more education or he lp with school (early child education under 5 years old, high school diploma or GED, college level education) Yes 02/25/2024 Immigration Answer Date Recorded Accessing resources to address immigration needs Yes 11/29/2023 Finance Answer Date Recorded Managing or growing your mon ey (open a bank account, file taxes, save money, improve credit, buy a house)? Yes 11/29/2023 Technology Answer Date Recorded Using a computer or phone to manage your health (use [employer], see medical records, make appointments, get refills, [...] encounter Miscellaneous Notes * Telephone Encounter - Magaly Hamilton MA - 10/07/2024 3:44 PM EST Hospital Discharge and Admissions for [facility] Type of Visit:: Emergency Department Date of ED/UC Visit: 10/06/24 Date of ED/UC Discharge: 10/06/24 Facility:: [facility] Diagnosis Category/Categories: Medical Discharge Diagnosis: Chest pain, unspecified type Disposition:: Discharged Home Patient recently seen in ER. Based on ER follow up workflow, letter has been created and routed to letters pool for send out. documented in this encounter Plan of Treatment Upcoming Encounters Date Type Department Care Team (Late st Contact Info) Description 09/16/2025 10:40 AM EST Office Visit [address] [phone] China Gray PA-C [address] [place] [phone] 09/21/2025 10:15 AM EST Office Visit SOFTWARE CLERK [address] [place] [address], 5TH FLOOR [facility] [place] [address] Lisa Garcia MD [facility] [place] [address] 10/12/2025 11:00 AM EST Office Visit [address] [phone] Devan Mcbride MD, MPH [address] [place] [address] documented as of this encounter Visit Diagnoses Not on filedocumented in this encounter Additional Health Concerns Infection Onset Date Last Indicated Resolved Time COVID-19 Rule Out 12/12/2024 12/12/2024 documented as of this encounter Care Teams Sports Leadership Instructor Relationship Specialty Start Date End Date Devan Mcbride MD, MPH [address] [place] [id number] PCP - General Family Medicine 10/06/24 documented as of this encounter
--- OUTSIDE RECORDS SUMMARY | 2025-09-01 17:34 | XMS_ITS | Encounter Summary ---
Author Organization [facility] r Address [address] [place] [address] Phone Care Team Providers Care Stock Shaper Name Role Phone Devan Mcbride MD, MPH Primary Care Provider [phone] Reason for Visit * Reason Onset Date Comments Tuberculosis 01/26/2025 Encounter Details Date Type Department Care Team (Late st Contact Info) Description 01/26/2025 Telephone [facility] MEDICINE [address] [place] [phone] Devan Mcbride MD, MPH [address] [place] [address] Tuberculosis Social History Tobacco Use Types Packs/Day Years Used Date Smoking Tobacco: Never Smokeless Tobacco: Never Alcohol Use Standard Drinks/Week Comments Not Currently 0 (1 standard drink = 0.6 oz pur e alcohol) Occasional Housing Answer Date Recorded What is your living situation today? I have a [facility] place to live 01/26/2025 Medications Answer Date Recorded Do you have trouble paying for prescriptions? No 01/26/2025 Utilities Answer Date Recorded Do you have trouble paying f or utilites (heat, electricity, internet, or phone bill)? No 01/26/2025 Caregiving [place] Answer Date Recorded Taking care of a child, elder, or disabled perso n No 01/26/2025 Employment Answer Date Recorded Looking for a job, changing jobs, or getting job training Yes 01/26/2025 Education Answer Date Recorded Getting more education or he lp with school (early child education under 5 years old, high school diploma or GED, college level education) Yes 01/26/2025 Food Answer Date Recorded Within the past 12 months, w ere you worried whether your food would run out before you got money to buy more? Never true 0 01/26/2025 Within the past 12 months, d id the food you bought just didn't last and you didn't have money to get more? Sometimes true Transportation Answer Date Recorded Do you have trouble getting transportation to medical appointments? No 01/26/2025 Social Support Answer Date Recorded Getting more education or he lp with school (early child education under 5 years old, high school diploma or GED, college level education) Yes 01/26/2025 Immigration Answer Date Recorded Accessing resources to address immigration needs Yes 11/29/2023 Finance Answer Date Recorded Managing or growing your mon ey (open a bank account, file taxes, save money, improve credit, buy a house)? Yes 11/29/2023 Technology Answer Date Recorded Using a computer or phone to manage your health (use [employer], see medical records, make appointments, get refills, [...] encounter Miscellaneous Notes * Telephone Encounter - Devan Mcbride MD, MPH - 01/26/2025 11:07 AM EDT Pt self-discontinued Rifampin as she developed diarrhea and did not follow-up with TB clinic. Routing to TB Clinic RN to please reach out to pt and schedule f/up for her to help with managementof TB documented in this encounter Plan of Treatment Upcoming Encounters Date Type Department Care Team (Late st Contact Info) Description 09/16/2025 10:40 AM EST Office Visit [address] [phone] China Gray PA-C [address] [place] [phone] 09/21/2025 10:15 AM EST Office Visit OFFICE CHAIR ASSEMBLER [address] [facility], 5TH FLOOR [facility] [place] [address] Lisa Garcia MD [facility] [place] [address] 10/12/2025 11:00 AM EST Office Visit [address] [phone] Devan Mcbride MD, MPH [address] [place] [phone] documented as of this encounter Visit Diagnoses Not on filedocumented in this encounter Additional Health Concerns Infection Onset Date Last Indicated Resolved Time COVID-19 Rule Out 12/12/2024 12/12/2024 documented as of this encounter Care Teams Stock Shaper Relationship Specialty Start Date End Date Devan Mcbride MD, MPH [address] [place] [address] PCP - General Family Medicine 10/06/24 documented as of this encounter
--- OUTSIDE RECORDS SUMMARY | 2025-09-01 17:34 | XMS_ITS | Clinical Summary ---
Author Organization [facility] Address [address] [place] [address] Care Team Providers Care Clamp Truck Driver Name Role Phone Unknown, Provider Primary Care Provider Unava ilable Medications No known medications Active Problems No known active problems Encounters Date Type Department Care Team Description 08/31/2025 2:53 PM EST - 09/01/2025 11:18 AM EST Hospital Encounter [facility] Emergency Department [address] [place], [place] [id number] Micah Davila MD Brody, Joshua, MD Intentional ibuprofen overdose, initial encounter ([facility]) (Primary Dx); Suicide attempt ([facility]); Depression, unspecified depression type Discharge Disposition: Psychiatric Hospital from Last 3 Months Family History Relation Status Comments Father Alive Mother Alive Social History Tobacco Use Types Packs/Day Years [...] PM EST Sexual Orientation Not on file Last Filed Vital Signs Vital Sign Reading Time Taken Comments Blood Pressure 120/70 09/01/2025 5:27 AM EST Pulse 70 09/01/2025 5:27 AM EST Temperature 36.8 C (98.2 F) 09/01/2025 10:56 AM EST Respiratory Rate 16 09/01/2025 5:27 AM EST Oxygen Saturation 100% 09/01/2025 5:27 AM EST Inhaled Oxygen Concentration - - Weight - - Height - - Body Mass Index - - Plan of Treatment Health Maintenance Due Date Last Done Comments Depression Screening 2000 Hepatitis C Screening 2006 DTaP,Tdap,and Td Vaccines (1 - Tdap) 2007 Pap Smear 2009 Cervical Cancer Screening 2018 HPV/Cotest 2018 COVID-19 Vaccine (1 - 2024-2 6 season) 2025 Influenza Vaccine (#1) 2025 Blood Pressure 09/01/2029 09/01/2025 Meningococcal B Vaccines Aged Out No longer eligible based on patient's age to complete this topic Meningococcal Vaccines Aged Out No lo nger eligible based on patient's age to complete this topic Pneumococcal Vaccine Aged Out No long er eligible based on patient's age to complete this topic Procedures Procedure Name Priority Date/Time Associated Diagnosis Comments ACETAMINOPHEN LEVEL STAT 08/31/2025 5 :48 PM EST ECG 12-LEAD STAT 08/31/2025 3:49 PM EST CBC AND DIFFERENTIAL STAT 08/31/2025 3:46 PM EST CBC AND DIFFERENTIAL STAT 08/31/2025 3:46 PM EST HCG, SERUM, QUALITATIVE STAT 08/31/2025 3:46 PM EST TOXICOLOGY SCREEN, BLOOD STAT 08/31/2025 3:46 PM EST BASIC METABOLIC PANEL STAT 08/31/2025 3:46 PM EST SARS COV2/INFLUENZA A/B AND RSV STAT 08/31/2025 3:41 PM EST DRUG SCREEN, URINE STAT 08/31/2025 3: 40 PM EST from Last 3 Months Results * (ABNORMAL) Acetaminophen Level (08/31/2025 5:48 PM EST) Acetaminophen Result,Blood <5(L) 10 - 30 ug/mL 08/31/2025 6:[address] [facility] Blood PERIPHERAL BLOOD SPECIMEN / Unknown Venipuncture / Unknown 08/31/2025 5:48 PM EST 08/31/2025 5:56 PM EST Micah Davila MD LAB BLOOD ORDERABLES Final Res ult [facility] [address] [facility] [address] [place] [address], [place] * ECG 12 lead (08/31/2025 3:49 PM EST) 08/31/2025 3:50 PM EST Narrative BILH CV BIDM ECG - 08/31/2025 3:49 PM EST See ED note for ECG result information. Micah Davila MD ECG ORDERABLES Final Result Performing Organization Address City/[facility]/ZIP Co de Phone Number BILH CV BIDM ECG * (ABNORMAL) CBC and Differential (08/31/2025 3:46 PM EST) WBC 10.85(H) 3.90 - 10.80 K/uL 08/31/2025 4:[address] [facility] RBC 5.21 4.20 - 5.60 M/uL 08/31/2025 4:[address] [facility] Hemoglobin 13.7 12.0 - 15.2 g/dL 08/31/2025 4:[address] [facility] Hematocrit 43.0 35.0 - 45.0 % 08/31/2025 4:[address] [facility] MCH 26.3 25.6 - 32.2 pg 08/31/2025 4:[address] [facility] MCHC 31.9(L) 32.0 - 36.0 g/dL 08/31/2025 4:[address] [facility] MCV 83 82 - 102 fL 08/31/2025 4:[address] [facility] RDW 13.2 12.0 - 15.0 % 08/31/2025 4:[address] [facility] RDW-SD 39.4 32.9 - 69.6 fL 08/31/2025 4:[address] [facility] Platelet Count 240 150 - 400 K/uL 08/31/2025 4:[address] [facility] MPV 11.1 8.5 - 13.0 fL 08/31/2025 4:[address] [facility] Neutrophil 81.7(H) 43.0 - 74.0 % 08/31/2025 4:[address] [facility] Lymphocyte 14.3(L) 17.0 - 47.0 % 08/31/2025 4:[address] [facility] Monocyte 3.1(L) 5.0 - 12.0 % 08/31/2025 4:[address] [facility] Eosinophil 0.3 0.1 - 6.0 % 08/31/2025 4:[address] [facility] Basophil 0.3 0.0 - 2.0 % 08/31/2025 4:[address] [facility] Immature Granulocyte ([place], Myelo, Promyelocyte) 0.3 0.0 - 5.0 % 08/31/2025 4:[address] [facility] Absolute Neutrophil Count 8.87(H) 1.50 - 8.10 K/uL 08/31/2025 4:[address] [facility] Absolute Immature Granulocyte ([place], Myelo, Promyelocyte) 0.03 0.00 - 0.66 K/uL 08/31/2025 4:[address] [facility] Absolute Lymphocyte Count 1.55 0.95 - 4.20 K/uL 08/31/2025 4:[address] [facility] Absolute Monocyte Count 0.34 0.20 - 1.20 K/uL 08/31/2025 4:[address] [facility] Absolute Eosinophil Count 0.03(L) 0.06 - 0.60 K/uL 08/31/2025 4:[address] [facility] Absolute Basophil Count 0.03 0.01 - 0.12 K/uL 08/31/2025 4:[address] [facility] Blood PERIPHERAL BLOOD SPECIMEN / Unknown Venipuncture / Unknown 08/31/2025 3:46 PM EST 08/31/2025 4:03 PM EST Micah Davila MD LAB BLOOD ORDERABLES Final Res ult Performing Organization Address City/[facility]/ZIP Co de Phone Number [facility] [address] [facility] [place] [address], [place] * (ABNORMAL) Plasma Toxicology Screen (08/31/2025 3:46 PM EST) Pathologist [facility] Acetaminophen Result,Blood <5(L) 10 - 30 ug/mL 08/31/2025 4:38 PM EST [facility] Alcohol <10 <10 mg/dL 08/31/2025 4:38 PM EST [facility] Salicylate Level, Blood <1 <30 mg/dL 08/31/2025 4:38 PM EST [facility] Blood PERIPHERAL BLOOD SPECIMEN / Unknown Venipuncture / Unknown 08/31/2025 3:46 PM EST 08/31/2025 4:03 PM EST us Micah Davila MD LAB BLOOD ORDERABLES Final Res ult Performing Organization Address [facility]/ZIP Co de Phone Number [facility] [address] [place] [address], [place] * HCG, serum, QUALitative (08/31/2025 3:46 PM EST) [facility] HCG, Qualitative, Serum Negative Negative 08/31/2025 4:38 PM EST [facility] Blood PERIPHERAL BLOOD SPECIMEN / Unknown Venipuncture / Unknown 08/31/2025 3:46 PM EST 08/31/2025 4:03 PM EST Micah Davila MD LAB BLOOD ORDERABLES Final Res ult Performing Organization Address City/[facility] Co de Phone Number [facility] [address] [place] [address], [place] * (ABNORMAL) Basic Metabolic Panel (08/31/2025 3:46 PM EST) [facility] Sodium 138 135 - 146 mmol/L 08/31/2025 4:35 PM EST [facility] Potassium 4.5 3.4 - 5.2 mmol/L 08/31/2025 4:[address] [facility] Chloride 101 98 - 110 mmol/L 08/31/2025 4:[address] [facility] Total CO2/Bicarbonat e 26 24 - 32 mmol/L 08/31/2025 4:[address] [facility] Anion Gap 11 2 - 15 mmol/L 08/31/2025 4:[address] [facility] BUN 12 6 - 20 mg/dL 08/31/2025 4:[address] [facility] Creatinine, Blood 0.80 0.50 - 1.10 mg/dL 08/31/2025 4:[address] [facility] Glucose, Blood 107(H) 70 - 100 mg/dL 08/31/2025 4:[address] [facility] Calcium 9.8 8.5 - 10.5 mg/dL 08/31/2025 4:[address] [facility] Estimated GFR(CKD-EPI) 97 >=60 mL/min/BSA 08/31/2025 4:[address] [facility] Blood PERIPHERAL BLOOD SPECIMEN / Unknown Venipuncture / Unknown 08/31/2025 3:46 PM EST 08/31/2025 4:03 PM EST us Micah Davila MD LAB BLOOD ORDERABLES Final Res ult [facility] [address] [facility] [place] [address], * Covid/Flu/RSV (Rapid) (08/31/2025 3:41 PM EST) Coronavirus SARS-CoV-2 Negative Negative 08/31/2025 4:[address] [facility] Influenza A Negative Negative 08/31/2025 4:[address] [facility] Influenza B Negative Negative 08/31/2025 4:[address] [facility] RSV by PCR Negative Negative 08/31/2025 4:[address] [facility] Respiratory SWAB OF INTERNAL NOSE / Unknown Collection / Unknown 08/31/2025 3:41 PM EST 08/31/2025 3:52 PM [facility] - 08/31/2025 4:49 PM EST Test performed with [employer] GeneXpert SARS-CoV-2 PCR assay. Negative results do not preclude SARS-CoV-2 infections and should not be used as the sole basis for treatment or other patient management decisions. us Micah Davila MD BODY FLUIDS AND STOOLS ORDERAB LES Final Result [facility] [address] [place] [address], [place] * Drug Screen, Urine (08/31/2025 3:40 PM EST) Pathologist [facility] Amphetamines Screen, Urine Negative Negative 08/31/2025 4:[address] [facility] Barbiturates Screen, Urine Negative Negative 08/31/2025 4:[address] [facility] Benzodiazepine Screen, Urine Negative Negative 08/31/2025 4:[address] [facility] Buprenorphine Screen, Urine Negative Negative 08/31/2025 4:[address] [facility] Cannabinoids Screen, Urine Negative Negative 08/31/2025 4:[address] [facility] Cocaine Metabolite Screen, Urine Negative Negative 08/31/2025 4:[address] [facility] Fentanyl Screen, Urine Negative Negative 08/31/2025 4:[address] [facility] Methadone Screen, Urine Negative Negative 08/31/2025 4:[address] [facility] Opiates Screen, Urine Negative Negative 08/31/2025 4:[address] [facility] Oxycodone Screen, Urine Negative Negative 08/31/2025 4:[address] [facility] Comment 08/31/2025 4:[address] [facility] Comment: The cut-off concentration [...] Micah Davila MD URINE ORDERABLES Final Result [facility] [address] [place] [address], [place] from Last 3 Months Insurance [facility] [employer] [facility] [employer] [facility] [employer] [facility] Care Teams Clamp Truck Driver Relationship Specialty Start Date End Date Unknown, Provider, [address] [place] [id number] PCP - General 08/31/25
--- OUTSIDE RECORDS SUMMARY | 2025-09-01 17:34 | XMS_ITS | Encounter Summary ---
Author Organization [facility] r Address [address] [place] [address] Phone Care Team Providers Care Oracle E Business Developer Name Role Phone Devan Mcbride MD, MPH Primary Care Provider [phone]- [phone] Reason for Visit * Reason Onset Date Comments Appointment 03/11/2024 Encounter Details Date Type Department Care Team ([facility] st Contact Info) Description 03/11/2024 Telephone DIGITAL MARKETING ASSISTANT [address] [facility], 5th Floor [facility] Concession Cash[facility] [place] [phone] Pcp-Confirmed, No Appointment Social History Tobacco Use Types Packs/Day Years Used Date Smoking Tobacco: Never Smokeless Tobacco: Never Alcohol Use Standard Drinks/Week Comments Not Currently 0 (1 standard drink = 0.6 oz pur e alcohol) Occasional Housing Answer Date Recorded What is your living situation today? I d on't have a steady place to live (living with others, hotel, [facility], outside on the street, on a bench, in a car, abandoned building, bus or train station, in a park) 02/25/2024 Medications Answer Date Recorded Do you have trouble paying for prescriptions? No 02/25/2024 Utilities Answer Date Recorded Do you have trouble paying f or utilites (heat, electricity, internet, or phone bill)? No 02/25/2024 Caregiving [place] Answer Date Recorded Taking care of a [...] before you got money to buy more? Sometimes true 0 02/25/2024 Within the past 12 months, d id the food you bought just didn't last and you didn't have money to get more? Sometimes true Transportation Answer Date Recorded Do you have trouble getting transportation to medical appointments? No 02/25/2024 Social Support Answer Date Recorded Getting more [...] or phone to manage your health (use [employer], see medical records, make appointments, get refills, message care team) No 11/29/2023 Comments No Sex and Gender Information Value Date Recorded Sex Assigned at Female 11/21/2023 3:57 PM EST Legal Sex Female 10:09 AM EST Gender Identity Female 11/21/2023 3:57 PM EST Sexual Orientation Straight 04/22/2024 8: 27 AM EDT documented as of this encounter Miscellaneous Notes * Telephone Encounter - April Torres - 03/11/2024 3:35 PM EDT Patient Reported Reason for Call Patient presents with Appointment Patient called in regards to scheduling an appt. The pt has a referral on file for [facility] and the pt stated she missed a few calls to schedule and she would like a call back. You can reach the patient at [phone]. Advised 48-72 hr tat documented in this encounter Plan of Treatment Upcoming Encounters Date Type Department Care Team (Late st Contact Info) Description 09/16/2025 10:40 AM EST Office Visit [address] [place] [phone] China Gray PA-C [address] [place] [phone] 09/21/2025 10:15 AM EST Office Visit DIGITAL MARKETING ASSISTANT [address] [facility], 5TH FLOOR [facility] [place] [address] Lisa Garcia MD [facility] [place] [address] 10/12/2025 11:00 AM EST Office Visit [address] [phone] Devan Mcbride MD, MPH [address] [place] [phone] documented as of this encounter Visit Diagnoses Not on filedocumented in this encounter Additional Health Concerns Infection Onset Date Last Indicated Resolved Time COVID-19 Rule Out 10/06/2024 10/06/2024 10/06/2024 8:34 PM EST COVID-19 Rule Out 12/12/2024 12/12/2024 documented as of this encounter Care Teams Oracle E Business Developer Relationship Specialty Start Date End Date Devan Mcbride MD, MPH [address] [place] [phone] PCP - General Family Medicine 10/06/24 documented as of this encounter
--- OUTSIDE RECORDS SUMMARY | 2025-09-01 17:34 | XMS_ITS | Encounter Summary ---
Author Organization [facility] r Address [address] [place] [address] Phone Care Team Providers Care Vaccinator Name Role Phone Devan Mcbride MD, MPH Primary Care Provider [phone]- [phone] Reason for Visit * Reason Onset Date Comments Abnormal Lab 01/27/2025 Hyperkalemia Encounter Details Date Type Department Care Team (Late st Contact Info) Description 01/27/2025 Telephone [facility] [address] [place] [phone] Devan Mcbride MD, MPH [address] [place] [phone] Abnormal Lab (Hyperkalemia) Social History Tobacco Use Types Packs/Day Years Used Date Smoking Tobacco: Never Smokeless Tobacco: Never Alcohol Use Standard Drinks/Week Comments Not Currently 0 (1 standard drink = 0.6 oz pur e alcohol) Occasional Housing Answer Date Recorded What is your living situation today? I have a [facility] place to live 01/26/2025 Medications Answer Date Recorded Do you have trouble paying for prescriptions? No 01/26/2025 Utilities Answer Date Recorded Do you have trouble paying f or utilites (heat, electricity, internet, or phone bill)? No 01/26/2025 Caregiving [place] Answer Date Recorded Taking care of a [...] or phone to manage your health (use [employer], see medical records, make appointments, get refills, [...] encounter Miscellaneous Notes * Telephone Encounter - Amber Fuentes RN - 01/28/2025 2:34 PM EDT Outreach RN called patient and spoke with patient RN notified patient about their test result and reviewed information as per the above provider message. RN was Able to answer all patient questions. Offered patient follow up appointment to further answer questions: Declined Future Appointments Date Time Provider Department Center 02/09/2025 11:45 AM JOHANNE Coffey [facility] None 04/27/2025 10:30 AM Devan Mcbride MD, MPH [facility] RN asked if patient needs any letters. Pt does not need a letter * Telephone Encounter - Dora Márquez RN - 01/27/2025 3:34 PM EDT Outreach RN called patient w/ language line ID #[id number] VM box not set up, unable to LVM x2 Future Appointments Date Time Provider Department Center 02/09/2025 11:45 AM Patrick Woods NP [facility] None 04/27/2025 10:30 AM Devan Mcbride MD, MPH [facility] * Telephone Encounter - Devan Mcbride MD, MPH - 01/27/2025 3:21 PM EDT Routing phone note to RN to please call pt and let her know that her metabolic panel came back and shows that her potassium is elevated at 5.4 Her K is elevated because of the medication that I started her on, the Olmesartan, for treatment ofhypertension. I recommend she stop the Olmesartan. Since her BP was very well controlled at last visit and her home BP was normal, I would like to watch her BP off medication. Please have her measure her BP again twice daily (AM and PM) for 10 measurements and drop off the readings for me to review to determine if she needs to go back on medication. I would like to have her come in to repeat the blood test in 1 to 2 weeks to make sure her potassium level has returned to normal. Thank you. documented in this encounter Plan of Treatment Upcoming Encounters Date Type Department Care Team (Late st Contact Info) Description 09/16/2025 10:40 AM EST Office Visit [facility] [address] [place] [phone] China Gray PA-C [address] [place] [phone] 09/21/2025 10:15 AM EST Office Visit GARAGE ATTENDANT [address] [facility], 5TH FLOOR [facility] [place] [address] Lisa Garcia MD [address] [facility] [place] [address] 10/12/2025 11:00 AM EST Office Visit [facility] [address] [facility] [phone] Devan Mcbride MD, MPH [address] [place] [phone] documented as of this encounter Results * (ABNORMAL) Basic Metabolic Panel (03/06/2025 11:49 AM EDT) NA 140 136 - 145 mmol/L [facility] K 5.0 3.5 - 5.1 mmol/L [facility] CL 106 98 - 107 mmol/L [facility] CO2 28 21 - 32 mmol/L [facility] ANION GAP 6.0 5.0 - 20.0 mmol/L [facility] BUN 13 4 - 22 mg/dL [facility] CREAT 0.80 0.50 - 1.40 mg/dL [facility] BUN/CREAT 16.3 6.0 - 25.0 [facility] [address] [facility] GLU 62(L) 74 - 106 mg/dL [facility] CA 9.2 8.4 - 10.5 mg/dL [facility] EGFR >90 >59 mL/min/1.7 3m2 [facility] Comment: The calculation of eGFR utiilizes the 2020 CKD-EPI Creatinine equation. eGFR estimates can be inaccurate and may vary from the true level of kidney function. Specific populations in which an eGFR value may be inaccurate or biased include: acute kidney injury, , extremes of muscle mass, age greater than 80 years old. Blood 03/06/2025 11:4 9 AM EDT 03/06/2025 11:49 AM EDT us Devan Mcbride MD, MPH LAB BLOOD ORDERABLES Final Result [facility] [address] [facility] CLIA #[id number] [place] [address], documented in this encounter Visit Diagnoses Diagnosis Drug-induced hyperkalemia- Primary Primary hypertension Unspecified essential hypertension documented in this encounter Additional Health Concerns Infection Onset Date Last Indicated Resolved Time COVID-19 Rule Out 12/12/2024 12/12/2024 documented as of this encounter Care Teams Vaccinator Relationship Specialty Start Date End Date Devan Mcbride MD, MPH [address] [place] [address] PCP - General Family Medicine 10/06/24 documented as of this encounter
--- OUTSIDE RECORDS SUMMARY | 2025-09-01 17:34 | XMS_ITS | Encounter Summary ---
Author Organization [facility] [place] r Address [address] [place] [address] Phone Care Team Providers Care Carpet Repairer Name Role Phone Devan Mcbride MD, MPH Primary Care Provider [phone]- [phone] Encounter Details Date Type Department Care Team (Late st Contact Info) Description 01/14/2025 Telephone [facility] [address] [place] [address] Devan Mcbride MD, MPH [address] [place], [place] [id number] Social History Tobacco Use Types Packs/Day Years Used Date Smoking Tobacco: Never Smokeless Tobacco: Never Alcohol Use Standard Drinks/Week Comments Not Currently 0 (1 standard drink = 0.6 oz pur e alcohol) Occasional Housing Answer Date Recorded What is your living situation today? I have a [facility] to live 12/29/2024 Medications Answer Date Recorded Do you have trouble paying for prescriptions? No 12/29/2024 Utilities Answer Date Recorded Do you have trouble paying f or utilites (heat, electricity, internet, or phone bill)? No 12/29/2024 Caregiving [place] Answer Date Recorded Taking care of a child, elder, or disabled perso n No 12/29/2024 Employment Answer Date Recorded Looking for a job, changing jobs, or getting job training Yes 12/29/2024 Education Answer Date Recorded Getting more education or he lp with school (early child education under 5 years old, high school diploma or GED, college level education) Yes 12/29/2024 Food Answer Date Recorded Within the past 12 months, w ere you worried whether your food would run out before you got money to buy more? Sometimes true 0 12/29/2024 Within the past 12 months, d id the food you bought just didn't last and you didn't have money to get more? Sometimes true Transportation Answer Date Recorded Do you have trouble getting transportation to medical appointments? No 12/29/2024 Social Support Answer Date Recorded Getting more education or he lp with school (early child education under 5 years old, high school diploma or GED, college level education) Yes 12/29/2024 Immigration Answer Date Recorded Accessing resources to address immigration needs Yes 11/29/2023 Finance Answer Date Recorded Managing or growing your mon ey (open a bank account, file taxes, save money, improve credit, buy a house)? Yes 11/29/2023 Technology Answer Date Recorded Using a computer or phone to manage your health (use [employer], see medical records, make appointments, get refills, [...] encounter Miscellaneous Notes * Telephone Encounter - Concha Ramos - 01/14/2025 11:53 AM EDT A FORM was [ ] requested [ x] dropped off at the health center. Type of Form : Blood Pressure Log Book Date form was dropped off : 01/14/2025 Who received the form : Concha ramos The following information was confirmed with the patient: PCP : Devan Mcbride MD, MPH HOME PHONE: [phone] MOBILE : Telephone Information: Date form needed by : Disposition : [ ] Patient to pick up operator [ ] Mail to patient [ ] Mail to other address [ ] Fax to this number: Below address was confirmed: [address] [place] [address] [address] [facility] [address] documented in this encounter Plan of Treatment Upcoming Encounters Date Type Department Care Team (Late st Contact Info) Description 09/16/2025 10:40 AM EST Office Visit [address] [phone] China Gray PA-C [address] [place] [phone] 09/21/2025 10:15 AM EST Office Visit J[facility] MODEL MAKER APPRENTICE [address] [facility], 5TH FLOOR [facility] [employer] [place] [place] [address] Lisa Garcia MD [facility] [place] [address] 10/12/2025 11:00 AM EST Office Visit [address] [phone] Devan Mcbride MD, MPH [address] [place] [phone] documented as of this encounter Visit Diagnoses Not on filedocumented in this encounter Additional Health Concerns Infection Onset Date Last Indicated Resolved Time COVID-19 Rule Out 12/12/2024 12/12/2024 documented as of this encounter Care Teams Carpet Repairer Relationship Specialty Start Date End Date Devan Mcbride MD, MPH [address] [place] [id number] PCP - General Family Medicine 10/06/24 documented as of this encounter
--- OUTSIDE RECORDS SUMMARY | 2025-09-01 17:34 | XMS_ITS | Encounter Summary ---
Author Organization [facility] r Address [address] [place] [address] Phone Care Team Providers Care Engineer Steam Name Role Phone Devan Mcbride MD, MPH Primary Care Provider [phone]- [phone] Encounter Details Date Type Department Care Team (Late st Contact Info) Description 04/11/2024 Tumor Board TAX ACCOUNTANT [address] [place] [address] Mary Jaramillo MD, [place] [address] Social History Tobacco Use Types Packs/Day Years Used Date Smoking Tobacco: Never Smokeless Tobacco: Never Alcohol Use Standard Drinks/Week Comments Not Currently 0 (1 standard drink = 0.6 oz pur e alcohol) Occasional Housing Answer Date Recorded What is your living situation today? I d on't have a steady place to live (living with others, hotel, care home, outside on the street, on a bench, in a car, abandoned building, bus or train station, in a park) 03/20/2024 Medications Answer Date Recorded Do you have trouble paying for prescriptions? No 02/25/2024 Utilities Answer Date Recorded Do you have trouble paying f or utilites (heat, electricity, internet, or phone bill)? No 02/25/2024 Caregiving [place] Answer Date Recorded Taking care of a [...] or phone to manage your health (use [employer], see medical records, make appointments, get refills, message care team) No 11/29/2023 Comments No Sex and Gender Information Value Date Recorded Sex Assigned at Female 11/21/2023 3:57 PM EST Legal Sex Female 10:09 AM EST Gender Identity Female 11/21/2023 3:57 PM EST Sexual Orientation Straight 04/22/2024 8: 27 AM EDT documented as of this encounter Progress Notes * Mary Jaramillo MD, MPH - 04/11/2024 11:59 PM EDT [facility] GYNECOLOGIC ONCOLOGY MULTIDISCIPLINARY TUMOR BOARD Name: Francoise Britt Tumor Board Date: 04/11/2024 HPI: Francoise Britt is a 34 y.o. who was referred to Gynecologic Oncology with adiagnosis of bilateral complex adnexal masses. Patient was seen by her PCP for abdominal pain and was noted to have adnexal tenderness. She underwent pelvic US which demonstrated bilateral complex adnexal masses. Tumor markers were done and notable for elevated CA19-9 to 129 and CA125 to 93. She was then referred to geothermal hvac technician onc for further evaluation. On her initial visit to geothermal hvac technician onc, she denied no early satiety or unintentional weight loss. Last pap 03/09/24, NILM HPV neg PMH: Past Medical History: Diagnosis Date Hypertension Obesity PCOS (polycystic ovarian syndrome) PSH: Past Surgical History: Procedure Laterality Date OVARIAN CYST SURGERY 2019 Had surgery in the [place] for ovarian cysts She reports took 5+ hours and resulted in both a Pfannenstiel and vertical midline incision FH: Family History Adopted: Yes Problem Relation Age of Onset Tuberculosis Sister Procedure: None Pertinent intraoperative findings: N/A Pertinent imaging findings: 11/21/2023 MRI Pelvis with and without contrast FINDINGS: Uterus: Anteverted. Intramural fibroid in the anterior uterine fundus measuring 2.1 x 2.2 x 1.9 cm. [place] shaped 2 x 0.8 cm cystic abnormality abutting cervical canal posteriorly may suggest focal adenomyosis. Endometrial stripe: Normal, measuring 6 mm. Ovaries: Right ovary measures 7.0 cm. In aggregate with tubular configuration of cystic structure in the right adnexal region compatible with hydrosalpinx or hematosalpinx. Left ovary measures 4.2 cm. The ovaries abut each other. There are multiple rounded T1 hyperintense lesions in the bilateral ovaries, measuring up to 4.2 cm on the right and 3.1 cm and the left. Some of these lesions are also T2 hypointense. No evidence of internal enhancement. Right-sidedhematosalpinx. Adenopathy: None. Ascites: Trace of fluid in cul-de-sac. IMPRESSION: Multiple round T1 hyperintense lesions in the bilateral ovaries without internal enhancement, most likely representing endometriomas. The bilateral ovaries abut each other, which could represent kissing ovary side in the setting of endometriosis. Suspected focal adenomyosis in lower uterine segment. Trace of fluid in cul-de-sac. Right-sided hematosalpinx. 11/21/2023 Pelvic Ultrasound FINDINGS: Uterus measures: 8.4 cm x 6.3 cm x 2.9 cm. Endometrial stripe measures: 8.7 mm. Myometrium: 2.1 cm anterior uterine fibroid. The ovaries are markedly abnormal. Right ovary is enlarged, with a complex solid and cystic mass with thick, nodular septations, in total measuring 7 x 8 cm in diameter. Peripheral vascularity appears to be preserved, with arterial and venous waveforms demonstrated. The left ovary is likewise enlarged, with a solid and cystic lesion with thick, nodular septations measuring 5 x 3 cm. Peripheral vascularity is preserved, with arterial and venous waveforms demonstrated. Mild left-sided hydrosalpinx. Pelvic fluid: None. Limited imaging of the kidneys shows no evidence of hydronephrosis. IMPRESSION: Complex bilateral ovarian masses, with solid and cystic components. The findings are suspicious formalignancy until proven otherwise. Peripheral vascularity in both ovaries is demonstrated, with no evidence of acute torsion at this time. However, intermittent torsion cannot be excluded. RN INTENSIVE CARE UNIT consultation is recommended. Pertinent labs: CA 19-9 108 (11/21/23) > 129 (02/25/24) CA 125 93 (11/21/23) CEA <1.7 (11/21/23) Pathology: None Impression: Francoise Britt is a 34 y.o. w/ bilateral complex adnexal cysts and elevated tumor markers. Pt strongly desires future fertility but would like to prioritize healthif one or both ovaries are cancerous requiring removal. Plan: - Recommend diagnostic laparoscopy, bilateral cystectomy, possible unilateral or bilateral salpingo-oophorectomy with intra-op frozen pathology. Possible ex lap for significant adhesive disease and/or significant endometriosis if identified - If malignancy identified on frozen, proceed with complete staging including ex lap, ELENI, BSO, omentectomy, debulk - Genetics referral if malignant ovarian tumor identified Providers in Attendance: This is not a treatment plan. It is a recommendation based solely on available information at the time of tumor board. This recommendation is a consensus of the tumor board discussion. The final decisions regarding management are at the discretion of the primary provider and patient. Cosigned by Devan Bustos MD at 06/10/2024 11:29 AM EDT Associated attestation - Devan Bustos MD - 06/10/2024 11:29 AM EDT RN [facility]ARE [facility] Oncology Multidisciplinary Tumor Board Addendum I have reviewed this Tumor Board note and was present for the RN INT[facility] CARE [facility] Oncology Multidisciplinary Tumor Board meeting on the date listed. I agree with the plan as stated above, with no modifications. Devan Bustos MD Division of Gynecologic Oncology [facility] documented in this encounter Plan of Treatment Upcoming Encounters Date Type Department Care Team (Late st Contact Info) Description 09/16/2025 10:40 AM EST Office Visit [address] [phone] China Gray PA-C [address] [place] [phone] 09/21/2025 10:15 AM EST Office Visit TAX ACCOUNTANT [address] [facility], 5TH FLOOR [facility] [place] [address] Lisa Garcia MD [address] [facility] [place] [address] 10/12/2025 11:00 AM EST Office Visit [address] [phone] Devan Mcbride MD, MPH [address] [place] [phone] documented as of this encounter Visit Diagnoses Not on filedocumented in this encounter Additional Health Concerns Infection Onset Date Last Indicated Resolved Time COVID-19 Rule Out 10/06/2024 10/06/2024 10/06/2024 8:34 PM EST COVID-19 Rule Out 12/12/2024 12/12/2024 documented as of this encounter Care Teams Engineer Steam Relationship Specialty Start Date End Date Devan Mcbride MD, MPH [address] [place] [id number] PCP - General Family Medicine 10/06/24 documented as of this encounter
--- OUTSIDE RECORDS SUMMARY | 2025-09-01 17:34 | XMS_ITS | Clinical Summary ---
Author Organization [facility] r Address [address] [place] [address] Phone Care Team Providers Care Research Test Engine Operator Name Role Phone Devan Mcbride MD, MPH Primary Care Provider [phone] Allergies Active Allergy Reactions Criticality Noted Date Comments Olmesartan Other (See Comments) Medium 01/27/2025 HYPERKALEMIA Medications ferrous sulfate 325 (65 FE) mg tablet Take 1 tablet (325 mg total) by mouth every other day for 90 days. 45 tablet 11/29/19 24 Active senna-docusate (SENNOSIDES-DOCUS ATE SODIUM) 8.6-50 mg Take 1 tablet by mouth daily. 30 tablet 1 06/20/20 24 Active acetaminophen (TYLENOL) 325 mg tabletIndications :Menorrhagia with regular cycle Take 2 tablets (650 mg total) by mouth every 6 (six) hours as needed for pain. 100 tablet 1 12/30/19 25 Active hydrocortisone 2.5 % ointmentIndicatio ns:Flexural eczema Apply topically 2 (two) times a day. Apply to affected area only for up to 2 weeks at a time, then stop for 1 week. Then can switch to as needed for rash/itching. Continue to use moisturizer regularly to prevent return of symptoms. For neck 60 g 2 01/27/20 25 Active mineral oil-hydrophil petrolat OintIndications:F lexural eczema Apply to dry skin up to 4 times a day. Especially after bathing/washing 452 g 5 01/27/20 25 Active triamcinolone (KENALOG) 0.1 % ointmentIndicatio ns:Flexural eczema Apply topically 2 (two) times a day. Apply to rash on breast and abdomen twice daily until resolved. Then stop. 80 g 2 03/18/20 25 Active multivitamin 27 mg iron- 800 mcg Tab tabletIndications :Encounter for preconception consultation Take 1 tablet by mouth daily. 90 tablet 3 05/04/20 25 Active blood pressure test kit-large (OMRON 3 SERIES UPPER ARM BLOOD PRESSURE MONITOR) Kit Use to check home blood pressure as directed 1 kit 08/08/20 25 Active naproxen (NAPROSYN) 500 mg tabletIndications :Costochondritis Take 1 tablet (500 mg total) by mouth 2 (two) times a day with meals for 21 days. 42 tablet 08/17/20 25 025 Active clotrimazole (LOTRIMIN) 1 % cream Apply bid to feet 30 g 1 08/17/20 25 Active rifaMPIN (RIFADIN) 300 MG capsule Take 2 capsules (600 mg total) by mouth daily. 60 capsule 3 07/15/20 24 025 Discontin ued(Thera py completed ) Active Problems Problem Noted Date Diagnosed Date Flexural eczema 01/26/2025 Assessment & Plan (01/26/2025 1:25 PM EDT): Pt has erythematous dry appearing papular rash arms and in flexural areas with excoriations and on her neck Appears to be eczema - Treat flexural areas with Triamcinolone 0.1% ointment BID for 2 weeks on, 1 week off, then resume BID prn for itching/rash - Treat neck areas with Hydrocortisone 2.5% ointment BID for 2 weeks on, 1 week off, then resume BID prn for itching/rash - Regular emollient use to all areas to provide skin hydration and help prevent recurrence - F/up at next visit Pre-diabetes 12/29/2024 Assessment & Plan (01/26/2025 1:26 PM EDT): Reviewed labs which show elevated A1c of 5.7 - Counseled pt that this means she has increased risk of developing diabetes - Plan to monitor A1c annually next due in 12/2025 - counseled pt on healthy nutrition and physical activity to prevent progression to diabetes mellitus Pelvic and perineal pain 06/02/2024 Regular astigmatism of both eyes 03/10/2024 Assessment & Plan (03/10/2024 1:07 PM EDT): Spec rx dispensed today. Monitor. Dryness, eye 03/10/2024 Assessment & Plan (03/10/2024 1:08 PM EDT): Discussed with patient on nature of dry eye and that it can be caused by systemic and/or environmental origins. Recommend artificial tears QID both eyes, warm compress BID and proper lid hygiene. Reviewed artificial tears options with patient. 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 Appears benign. Recommend taking photo at next visit (fundus camera unavailable today). Monitor. Hypertension 01/08/2024 Overview (04/15/2024): Last Assessment & Plan: Patient has history of elevated blood pressure without diagnosis of hypertension. Today patient reports no symptoms; feeling well. Use of agents that may affect hypertension: none. Patient is checking BP at home, values are 130/70 Their blood pressure today is: BP Readings from Last 3 Encounters: 01/15/24 (!) 130/92 01/08/24 (!) 145/85 Pulse Readings from Last 1 Encounters: No data found for Pulse Discussed cardiovascular risk factors including none and shared decision making around optimal blood pressure control, reduction of salt intake/cardiac diet, exercise, and stress reduction. Reviewed blood pressure reading, Recommended pcp follow up, Provided blood pressure tracking card, and encouraged to check BP daily and schedule follow up with PCP . Assessment & Plan (08/03/2025 12:04 PM EDT): Orders: Remote BP Monitoring Assessment & Plan (05/04/2025 5:07 PM EDT): BP is at goal of < 140/90 - continue lifestyle management - F/up in three months - If pt needs medication in the future then treat with Amlodipine as also safe to take in Assessment & Plan (01/26/2025 1:23 PM EDT): BP is at goal of < 140/90. Secondary hypertension work-up negative - continue Olmesartan 20 mg daily - Repeat BMP today to monitor renal function and potassium - F/up in three months Assessment & Plan (12/29/2024 12:25 PM EDT): HTN is newly diagnosed based on home BP > 150 systolic BP is at goal of < 140/90 - start Olmesartan 20 mg daily - Check BMP today - Given pt's age and nulliparity will also do secondary hypertension work-up with UA, urine microalbumin, plasma metanephrines, and renin:aldosterone ratio (previously had normal TSH) - F/up in one month Assessment & Plan (07/04/2024 10:58 AM EDT): BP is normal which suggests that pt's elevated BP was related to anxiety. F/up in 3 months Healthcare maintenance 11/29/2023 Overview (11/29/2023): Breast cancer screening: Not due Cervical Cancer: Due 2023 Colon Cancer screening: Lung Cancer Screening(CT 50-80 y/o w/ 20+ pack yr hx or quit w/in 15 yrs): N/A non smoker STI/infectious screening: Urine GC negative/Syph/Hepatitis B and C/HIV ordered Osteoporosis screening:Not indicated for age Hyperlipidemia Screening - 21-75 y/o screened every 5 yrs Lab Results Component Value Date Cholesterol 169 11/22/2023 Lab Results Component Value Date HDL Cholesterol 35 11/22/2023 Lab Results Component Value Date LDL Cholesterol,Calculated 112 11/22/2023 Lab Results Component Value Date Triglyceride 109 11/22/2023 Diabetes Screening Lab Results Component Value Date Hemoglobin A1C 5.6 11/22/2023 Cardiac health - With ASCVD >9.9%, statin for age 40-75 The patient's current 10 year ASCVD primary risk percentage is N/A% Assessment & Plan (11/29/2023 2:42 PM EST): - additional STI testing order - Tdap and covid booster today - Pap at future visits - Expressed interest in control in the future; given endometriomas on imaging, will first work this up before starting her on bc Iron deficiency anemia 11/29/2023 Overview (11/29/2023): Likely 2/2 known menorrhagia. Start iron tabs eod for better absorption. Pt to let me know if she is constipated Assessment & Plan (12/29/2024 12:25 PM EDT): - Repeat CBC without diff and iron studies Assessment & Plan (02/27/2024 3:05 PM EDT): Repeat CBC without diff and iron studies. 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 The bilateral ovaries abut each other, which could represent kissing ovary side in the setting of endometriosis. Suspected focal adenomyosis in lower uterine segment. Trace of fluid in cul-de-sac. Right-sided hematosalpinx. Assessment & Plan (08/03/2025 12:04 PM EDT): Assessment & Plan (05/04/2025 5:07 PM EDT): Assessment & Plan (12/29/2024 12:24 PM EDT): Pt continues to do well and is about 6 months post-op from bilateral salpingectomy with right oophorectomy showing endometriosis. - Continue outpatient DIESEL ENGINE I PIPE FITTER f/up Assessment & Plan (07/04/2024 10:57 AM EDT): Pt is s/p successful excision of endometrioma of right ovary as well as bilateral fallopian tubes that contained endometriomas. Pathology showed endometrioma with no concerns for malignancy. Left ovary not removed at time of surgery which should prevent pt from going into iatrogenic menopause. Pt is healing well - F/up with Gynecology Assessment & Plan (04/20/2024 7:50 PM EDT): Pt has seen [facility] and has laparoscopic surgery planned for 04/22/24 for ovarian cystectomy and depending on pathology findings possibly moving to full bilateral salpingo-oophorectomy. - F/up after surgery in 2 months Assessment & Plan (02/27/2024 3:07 PM EDT): Pt has not been able to see DIESEL ENGINE I PIPE FITTER and was placed on a wait list. I have messaged some of the clinical providers in the Gynecology Department at [facility] to try to get pt in jerem[place]. Pt has elevated CA 125 and Ca 19-9 which is hopefully due to endometriomas seen on MRI but needs f/up with DIESEL ENGINE I PIPE FITTER to determine next steps - F/up with me in 2 weeks for pap smear - Repeat CA 125 and Ca 19-9 today Assessment & Plan (11/29/2023 11:35 AM EST): Persistent pelvic pain and menorrhagia. Seen by OB inpatient , don't see fu appointment in system. Elevated CA125 and Ca-199. Can be elevations from benign endometriomas vs malignency. - Urgent OB referral - Pt navigator to assist in scheduling - ok to use aunt's #on file for fu appointment. History of PCOS 11/21/2023 Resolved Problems Problem Noted Date Diagnosed Date Resolved Date Pelvic mass 04/02/2024 12/29/2024 Encounters Date Type Department Care Team Description 08/27/2025 10:00 AM EST Clinical Support [facility] [address] [place] [address] Amandeep, Janet Primary hypertension (Primary Dx) 08/26/2025 10:15 AM EST - 08/26/2025 11:59 PM EST Hospital Encounter [facility] Breast Imaging [address], [address] [place] [address] Devan Mcbride MD, MPH Melody El MD Mass of upper outer quadrant of left breast Discharge Disposition: Home or Self Care 08/26/2025 9:38 AM EST - 08/26/2025 10:14 AM EST Hospital Encounter [facility] Breast Imaging [address], [address] [place] [address] Devan Mcbride MD, MPH Melody El MD Mass of upper outer quadrant of left breast Discharge Disposition: Home or Self Care 08/20/[address] [phone] Devan Mcbride MD, MPH Breast Mass 08/17/2025 10:00 AM EST Office Visit [address] [phone] Angelika Dugan DO Costochondritis (Primary Dx); Mass of upper outer quadrant of left breast; Tinea pedis of right foot 08/14/2025 Patient Outreach [address] [phone] Janet Brenstein Hypertension, Remote Patient Monitoring 08/07/[address] [address] Janet Bernstein Patient Education (RPM) 08/03/2025 10:45 AM EDT Office Visit [address] [phone] Devan Mcbride MD, MPH Primary hypertension (Primary Dx); Endometrioma of ovary; Need for vaccination from Last 3 Months Immunizations Immunization Administration Dates Next Due Covid-19 Vaccine, COMIRNATY (PFIZER)_12+_0.3 mL, intramuscular PF injection 08/03/2025 Covid-19 Vaccine, SPIKEVAX ( MODERNA)_12+_0.5 mL, intramuscular PF injection 11/29/2023 Influenza Vaccine (AFLURIA/F LULAVAL/FLUZONE TRIVALENT) IM PF Syringe (6 months and older) 08/03/2025 Influenza vaccine (FLULAVAL/ FLUZONE/FLUARIX TRIV) intramuscular PF syringe (>=6 months and older) 11/21/2023 TDAP 11/29/2023 Family History * Patient is adopted Medical History Relation Name Comments Tuberculosis Sister Anesthesia problems Neg Hx Breast cancer Neg Hx DVT Neg Hx Malig Hyperthermia Neg Hx Pulmonary embolism Neg Hx Relation Name Status Comments Sister Social History Tobacco Use Types Packs/Day Years Used Date Smoking Tobacco: Never Smokeless Tobacco: Never Tobacco Cessation:Counseling Given: Yes Alcohol Use Standard Drinks/Week Comments Not Currently 0 (1 standard drink = 0.6 oz pur e alcohol) Occasional Housing Answer Date Recorded What is your living situation today? I have a [facility] place to live 04/27/2025 Medications Answer Date Recorded Do you have trouble paying for prescriptions? Ye s 04/27/2025 Utilities Answer Date Recorded Do you have trouble paying f or utilites (heat, electricity, internet, or phone bill)? No 04/27/2025 Caregiving [place] Answer Date Recorded Taking care of a [...] or phone to manage your health (use [employer], see medical records, make appointments, get refills, [...] Orientation Straight 04/22/2024 8: 27 AM EDT Last Filed Vital Signs Vital Sign Reading Time Taken Comments Blood Pressure 121/86 08/27/2025 10:13 AM EST Pulse 84 08/27/2025 10:13 AM EST Temperature 36.8 C (98.3 F) 08/17/2025 10:04 AM EST Respiratory Rate 16 03/06/2025 10:47 AM EDT Oxygen Saturation 97% 08/17/2025 10:04 AM EST Inhaled Oxygen Concentration - - Weight 88.5 kg (195 lb) 08/17/2025 10:04 AM EST Height 167.6 cm (5' 5.98 ) 08/28/2024 3:32 PM ES T Body Mass Index 31.49 08/28/2024 3:32 PM EST Plan of Treatment Upcoming Encounters Date Type Department Care Team (Late st Contact Info) Description 09/16/2025 10:40 AM EST Office Visit [facility] MEDICINE [address] [place] [phone] China Gray PA-C [address] [place] [address] 09/21/2025 10:15 AM EST Office Visit [facility] [address] [facility], 5TH FLOOR [facility] [place] [address] Lisa Garcia MD [address] [place] [address] 10/12/2025 11:00 AM EST Office Visit [facility] MEDICINE [facility] [place] [phone] Devan Mcbride MD, MPH [address] [place] [address] Health Maintenance Due Date Last Done Comments HEIP Disability Screen 1993 Psych Substance Use Screen 2000 Relationship Safety Screening 2003 Colposcopy 2009 LEEP 2009 HPV VACCINES (1 - 3-dose SCD M series) 2015 BEHAVIORAL HEALTH SCREEN 10/28/2025 025, 11/29/2023 THRIVE SCREENING 10/28/2025 04/27/2025, 11/29/2023 Oral Health Screen 04/27/2026 04/27/2025 Pap + HPV 03/10/2027 03/12/2024, 03/10/2024 Diabetes Screening 12/30/2027 12/29/2024, 11/22/2023 Cervical Cancer Screening 03/10/2029 PAP SMEAR 03/10/2029 03/10/2024 DTAP/TDAP VACCINE (2 - Td or Tdap) 11/29/2033 11/29/2023 Zoster Vaccine (1 of 2) 2038 HIV Lifetime Screening Completed 11/29/2023 Hepatitis B Lifetime Screening Completed 11/29/2023 Hepatitis C Antibody Lifetim e Screening Completed 10/06/2024, 11/29/2023 LIPID PANEL Discontinued 12/29/2024, 11/22/2023 COVID-19 Vaccine Completed 08/03/2025, 11/29/2023 INFLUENZA VACCINE Completed 08/03/2025, 11/21/2023 IPV VACCINES Aged Out No longer eligi ble based on patient's age to complete this topic MENINGOCOCCAL B Aged Out No longer el igible based on patient's age to complete this topic Pneumonia Vaccine 0-49 Years Aged Out No longer eligible based on patient's age to complete this topic ROTAVIRUS VACCINES Aged Out No longer eligible based on patient's age to complete this topic Procedures Procedure Name Priority Date/Time Associated Diagnosis Comments BI US BREAST LIMITED LEFT Routine 08/26/2025 10:50 AM EST Mass of upper outer quadrant of left breast BI MAMMO DIGITAL TOMOSYNTHESIS DIAGNOSTIC BILATERAL Routine 08/26/2025 10:39 AM EST Mass of upper outer quadrant of left breast LIPID PANEL Routine 12/29/2024 10:56 AM EDT Encounter for lipid screening for cardiovascular disease HEMOGLOBIN A1C Routine 12/29/2024 10:56 AM EDT Diabetes mellitus screening HCV AB REFLEX TO CONFIRMATORY/VIRAL LOAD AND GENOTYPE Nursing - STAT 10/06/2024 7:13 PM EST THINPREP PAP W/IMAGING + HPV CT/NG (Q) Routine 03/10/2024 12:05 PM EDT Screening for cervical cancer Routine screening for STI (sexually transmitted infection) Vaginal discharge HEPATITIS B SURFACE ANTIGEN Routine 11/29/2023 10:15 AM EST Health education/counseling HIV-1/2 AG/AB INITIAL SCREENING Routine 11/29/2023 10:15 AM EST from Last 3 Months or Most Recently Relevant to Health Maintenance Results * BI US Left Breast Limited [...] were communicated to the patient by the survey technologist at the time of the exam [...] time: 08/26/2025 12:59 PM Angelika Dugan DO [facility] MAMMOGRAPHY ORD ERABLES Final Result * BI Mammo Bilateral Diagnostic Hany (08/26/2025 10:39 AM EST) [facility] PATIENT HEIGHT 167.6 GE RIS-IC [facility] PATIENT WEIGHT 88.451 [place] RIS-IC Anatomical Region Laterality Modality Breast Bilateral Mammography 08/26/2025 10:5 9 AM EST Impressions 08/26/2025 [...] were communicated to the patient by the survey technologist at the time of the exam [...] DO IMG MAMMOGRAPHY ORD ERABLES Final Result * (ABNORMAL) HgbA1c (12/29/2024 10:56 AM EDT) HA1C 5.7(H) 4.8 - 5.6 % [facility] JIN [facility] Comment: 2010 ADA Recommended Clinical Practice Reference Ranges: 5.6 % or Less: Normal Range 5.7 to 6.4 %: Increased Risk for Diabetes 6.5 % or Greater: Diabetes Lowering hemoglobin A1C to below or around 7% has been shown to reduce microvascular and neuropathic complications of type 1 and type 2 diabetes. Therefore, for microvascular prevention, the hemoglobin A1C goal for non adults in general is less than 7% (2010 ADA). MEAN GLUC 117 mg/dL [facility] SANIYA Dominguez [facility] Blood 12/29/2024 10:5 6 AM EDT 12/29/2024 10:56 AM EDT Devan Mcbride MD, MPH LAB BLOOD ORDERABLES Final Result [facility] [address] [place] [id number] [place] [address], * (ABNORMAL) Lipid panel (12/29/2024 10:56 AM EDT) CHOL 216(H) 0 - 200 mg/dL [facility] TGL 109 15 - 150 mg/dL [facility] HDL 40 40 - 60 mg/dL [facility] [place] [facility] LDLC 157.8(H) 0.0 - 99.0 mg/dL [facility] [place] [facility] Comment: Total Cholesterol: Less than 200 mg/dL: Desirable 200-239 mg/dL: Borderline increased risk of ASCVD 240 mg/dL or greater: Increased risk of ASCVD HDL Cholesterol: Less than 40 mg/dL: Increased risk of ASCVD 60 mg/dL or greater: Decreased risk of ASCVD LDL Cholesterol: Less than 100 mg/dL: Optimal 100-129 mg/dL: Near optimal 130-159 mg/dL: Borderline increased risk of ASCVD 160-189 mg/dL: Increased risk of ASCVD 190 mg/dL or greater: High risk for ASCVD Blood 12/29/2024 10:5 6 AM EDT 12/29/2024 10:56 AM EDT Devan Mcbride MD, MPH LAB BLOOD ORDERABLES Final Result [facility] [address] CLIA #[id number] [place] [address], * HCV Ab reflex to Confirmatory/Viral load and Genotype (10/06/2024 7:13 PM EST) Hepatitis C Antibody NON-REACTI VE NON-REACTI VE 10/06/2024 8:36 PM EST [facility] 10/06/2024 7:13 PM EST 10/06/2024 7:33 PM EST us Jose Ramon Dinh PA-C LAB BLOOD ORDERABLES Final R esult [facility] CLIA [id number] [address] [place] [address], [place] * Thinprep Pap w/Imaging + HPV + CT/NG (Q) (03/10/2024 12:05 PM EDT) CLINICAL INFORMATION Routine exam [facility] LMP 20,240,430 [facility] PREV. PAP NONE GIVEN [facility] PREV. BX NONE GIVEN [facility] [employer] SOURCE Cervix [facility] STATEMENT OF ADEQUACY Satisfactory for evaluation. Endocervical/mosley sformation zone component absent. [facility] INTERPRETATION/RES ULT Cytology Results: Negative for intraepithelial lesion or malignancy. [facility] COMMENT This Pap test has been evaluated with computer assisted technology. [facility] WIND PLANT MANAGER ELDA, CT(ASCP) CT screening location: [place] [address] [facility] COMMENT SEE NOTE [facility] Comment: EXPLANATORY NOTE: The Pap is a screening test for cervical cancer. It is not a diagnostic test and is subject to false negative and false positive results. It is most reliable when a satisfactory sample, regularly obtained, is submitted with relevant clinical findings and history, and when the Pap result is evaluated along with historic and current clinical information. HPV MRNA E6/E7 Not Detected Not Detected [facility] Comment: Methodology: Carpet Cleaner-Mediated Amplification This assay detects E6/E7 viral messenger RNA (mRNA) from 14 high-risk HPV types (16,18,31,33,35,39,45,51,52,56,58,59,66,68). Cervical sources are required for HPV testing. If a vaginal source from a patient who has had a total hysterectomy with removal of cervix was submitted, please contact the testing laboratory for alternative testing options. For additional information, please refer to http://education.Gopeers.Allocab/faq/NSC402n6 (This link if provided for information/ educational purposes only.) CHLAMYDIA TRACHOMATIS RNA, TMA NOT DETECTED NOT DETECTED [facility] NEISSERIA GONORRHOEAE RNA, TMA NOT DETECTED NOT DETECTED [facility] COMMENT SEE NOTE [facility] Comment: The analytical performance characteristics of this assay, when used to test SurePath(TM) specimens have been determined by [facility]. The modifications have not been cleared or approved by the FDA. This assay has been validated pursuant to the CLIA regulations and is used for clinical purposes. For additional information, please refer to https://education.Mira Designs/faq/VGX596 (This link is being provided for information/ educational purposes only.) 03/10/2024 12:0 5 PM EDT 03/10/2024 12:58 PM EDT Narrative [facility] - 03/12/2024 2:40 AM EDT [facility] Testing performed at: [facility], [facility], [address] [place] [address], [id number], Manager Garden: Catie Kaur [facility] Collection Date/Time: [id number] [facility] Results Received Date/Time: [facility] Reported Date/Time: Specimen Type Endocervical Swab Devan Mcbride MD, MPH BODY FLUIDS AND STOOLS ORD ERABLES Final Result [facility] * HIV-1/2 AG/AB Initial Screening (11/29/2023 10:15 AM EST) HIV Ag/Ab Combined Qualitative NON-REACTI VE NON-REACT MECHELLE 11/29/2023 2:02 PM EST [facility] 11/29/2023 10:1 5 AM EST 11/29/2023 10:23 AM EST us Mckenzie Witt MD LAB BLOOD ORDERABLES Final Res ult [facility] CLIA [id number] [address] [place] [address], * Hepatitis B surface Antigen (11/29/2023 10:15 AM EST) Hep B Surface Ag NON-REACTI VE NON-REACTI VE 11/29/2023 1:50 PM EST [facility] 11/29/2023 10:1 5 AM EST 11/29/2023 10:23 AM EST us Mckenzie Witt MD LAB BLOOD ORDERABLES Final Res ult [facility] CLIA [id number] [address] [place] [address], from Last 3 Months or Most Recently Relevant to Health Maintenance Additional Health Concerns Infection Onset Date Last Indicated COVID-19 Rule Out 12/12/2024 12/12/2024 Advance Directives For more information, please contact: [phone] (Available ) * Full Code (Latest Code Status on File) Date Activated Date Inactivated Comments 06/17/2024 11:00 AM 10/06/2024 2:28 PM Question Answer Comments Does patient have MOLST form? No Reviewed with patient? No * Full Code Date Activated Date Inactivated Comments 04/22/2024 11:18 AM 06/04/2024 12:11 PM Question Answer Comments Does patient have MOLST form? No Reviewed with patient? No * Full Code Date Activated Date Inactivated Comments 11/21/2023 4:34 PM 04/22/2024 8:31 AM Question Answer Comments Does patient have MOLST form? No Reviewed with patient? No Care Teams Research Test Engine Operator Relationship Specialty Start Date End Date Devan Mcbride MD, MPH [address] [place] [address] PCP - General Family Medicine 10/06/24
--- OUTSIDE RECORDS SUMMARY | 2025-09-01 17:34 | XMS_ITS | Encounter Summary ---
Author Organization [facility] r Address [address] [place] [address] Phone Care Team Providers Care Office Machine Mechanic Name Role Phone Devan Mcbride MD, MPH Primary Care Provider +1- [phone] Encounter Details Date Type Department Care Team (Late st Contact Info) Description 07/09/2024 Transcribe Orders 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 I d on't have a steady place to live (living with others, hotel, jail, outside on the street, on a bench, in a car, abandoned building, bus or train station, in a park) 06/17/2024 Medications Answer Date Recorded Do you have trouble paying for prescriptions? No 02/25/2024 Utilities Answer Date Recorded Do you have trouble paying f or utilites (heat, electricity, internet, or phone bill)? No 02/25/2024 Caregiving [place] Answer Date Recorded Taking care of a [...] or phone to manage your health (use Punctilt, see medical records, make appointments, get refills, message care team) No 11/29/2023 Comments No Sex and Gender Information Value Date Recorded Sex Assigned at Female 11/21/2023 3:57 PM EST Legal Sex Female 10:09 AM EST Gender Identity Female 11/21/2023 3:57 PM EST Sexual Orientation Straight 04/22/2024 8: 27 AM EDT documented as of this encounter Plan of Treatment Upcoming Encounters Date Type Department Care Team (Late st Contact Info) Description 09/16/2025 10:40 AM EST Office Visit [facility] MEDICINE [address] [place] [address] China Gray PA-C [address] [place] [phone] 09/21/2025 10:15 AM EST Office Visit MEDICATION NURSE [address] [facility], 5TH FLOOR [facility] C Unix Developer [place] [address] Lisa Garcia MD [address] [facility] [place] [address] 10/12/2025 11:00 AM EST Office Visit [facility] [address] [place] [phone] Devan Mcbride MD, MPH [address] [place] [address] documented as of this encounter Results * XR Chest, 2 View (07/15/2024 10:56 AM EDT) Anatomical Region Laterality Modality Chest Computed Radiogr aphy 07/15/2024 10:5 7 AM EDT Impressions 07/15/2024 11:03 AM EDT 1. No radiographic evidence of active pulmonary tuberculosis. I personally reviewed the study and agree with the dictated report. Dictated by: CAMERON JACOB MD Dictated date and time: 07/15/2024 10:57 AM Electronically signed by: Eric James M.D. Signed date and time: 07/15/2024 11:03 AM Narrative 07/15/2024 11:03 AM EDT EXAMINATION: Chest, 2 views HISTORY: +qft TECHNIQUE: PA and Lateral views. COMPARISON: 03/10/2024, XR CHEST PA AND LATERAL FINDINGS: Lines and tubes: None. Heart and mediastinum: Normal. Lungs and pleura: Lungs are clear. No pneumothorax. No pleural effusions. Bones: No acute osseous abnormality. Procedure Note Eric James MD - 07/15/2024 EXAMINATION: Chest, 2 views HISTORY: +qft TECHNIQUE: PA and Lateral views. COMPARISON: 03/10/2024, XR CHEST PA AND LATERAL FINDINGS: Lines and tubes: None. Heart and mediastinum: Normal. Lungs and pleura: Lungs are clear. No pneumothorax. No pleuraleffusions. Bones: No acute osseous abnormality. IMPRESSION: 1. No radiographic evidence of active pulmonary tuberculosis. I personally reviewed the study and agree with the dictated report. Dictated by: CAMERON JACOB MD Dictated date and time: 07/15/2024 10:57 AM Electronically signed by: Eric James M.D. 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
--- OUTSIDE RECORDS SUMMARY | 2025-09-01 17:34 | XMS_ITS | Clinical Summary ---
Author Organization [facility] Address [address] [facility] [address] [place] [id number] Phone Care Team Providers Care Transplant Worker Name Role Phone Unknown, Unknown Primary Care Provider Lily mayorga Active Problems Problem Noted Date Diagnosed Date Blood pressure elevated without history of HTN 0 01/08/2024 Assessment & Plan (01/16/2024 5:03 PM EDT): Patient has history of elevated blood pressure [...] up with PCP . Assessment & Plan (01/08/2024 4:07 PM EDT): Patient denies history of elevated blood pressure. Today patient reports no symptoms; feeling well. Use of agents that may affect hypertension: none. Patient is not currently checking BP at home Their blood pressure today is: BP Readings from Last 3 Encounters: 01/08/24 (!) 145/85 Pulse Readings from Last 1 Encounters: No data found for Pulse Discussed cardiovascular risk factors including none and shared decision making around optimal blood pressure control, reduction of salt intake/cardiac diet, exercise, and stress reduction. Reviewed blood pressure reading, Recommended pcp follow up, Provided blood pressure tracking card, and Provided home blood pressure cuff, instructed on use. Social History Tobacco Use Types Packs/Day Years Used Date Smoking Tobacco: Never Assessed Child or Family Care Answer Date Record ed Do you have problems with on e of the following making it difficult for you to work, study, or receive health care? No 01/08/2024 Education Answer Date Recorded Are you interested in help w ith more adult education (for example, completing high school, GED, job training, learning the Romansh language, technical skills, or developing parenting skills)? Yes 01/08/2024 Are you concerned about learning? Not on file 01/08/2024 Yes 01/08/2024 No 01/08/2024 Food Answer Date Recorded Within the past 6 months we worried whether our food would run out before we got money to buy more. Never True 01/08/2024 Within the past 6 months the food we bought just didn't last and we didn't have enough money to get more. Never True Residential Stability Answer Date Recor ded What is your housing situation today? I have a place to live today, but I am worried about losing it in the next 3 months 01/08/2024 How many times have you move d in the past 12 months? Zero (I did not move) 01/08/2024 Paying for Meds Answer Date Recorded Do you have trouble paying for medicines? No 01/08/2024 Paying Utility Bills Answer Date Record ed Do you have trouble paying your heating or elect ricity bill? No 01/08/2024 Transportation Answer Date Recorded Has the lack of transportati on kept you from medical appointments or from getting medications? No 01/08/2024 Unemployment Answer Date Recorded Are you currently unemployed or working on a part-time or temporary basis, and looking for work? No 01/08/2024 Digital Access Answer Date Recorded No 01/08/2024 Yes 01/08/2024 Do you have reliable internet access at home? Ye s 01/08/2024 Do you have a device (e.g., phone, tablet, computer) with a working camera? Yes 01/08/2024 Comments Unknown Sex and Gender Information Value Date Recorded Sex Assigned at Not on file Legal Sex Female 3:13 PM EDT Gender Identity Not on file Sexual Orientation Not on file Last Filed Vital Signs Vital Sign Reading Time Taken Comments Blood Pressure 160/80 10/06/2024 1:00 PM EST Pulse - - Temperature - - Respiratory Rate - - Oxygen Saturation - - Inhaled Oxygen Concentration - - Weight - - Height - - Body Mass Index - - Plan of Treatment Health Maintenance Due Date Last Done Comments DEPRESSION SCREENING 2000 SMOKING Hx and SMOKELESS TOB ACCO SCREENING 2001 HIV ONE-TIME SCREENING (18-6 5 YEARS) 2006 PAP SMEAR 2009 INFLUENZA VACCINE (#1) 2025 COVID-19 VACCINE ( - 2024-2 6 season) 2025 Adult Td,Tdap Booster 11/29/2033 11/29/2023 HEPATITIS C SCREENING Completed 11/29/2023 HEPATITIS A VACCINES Aged Out No long er eligible based on patient's age to complete this topic HIB VACCINES Aged Out No longer eligi ble based on patient's age to complete this topic MENINGOCOCCAL VACCINES (ACWY) Aged Out No longer eligible based on patient's age to complete this topic MENINGOCOCCAL VACCINES (B) Aged Out N o longer eligible based on patient's age to complete this topic PNEUMOCOCCAL VACCINES (0-49 years) Aged Out No longer eligible based on patient's age to complete this topic Medical Devices Not on file Insurance [facility] NET FULL [employer] [facility] FULL [employer] [facility] LIMITED Offermatic SAF[employer] NET [address] LIMITED HEALTH SAFETY NET FULL [facility] SAF[facility] NET FULL Care Teams Transplant Worker Relationship Specialty Start Date End Date Unknown, Unknown, PCP - General 01/08/24 Additional Source Comments The information contained in this document represents components of the legal health record. It is not the complete legal health record.[facility]
--- OUTSIDE RECORDS SUMMARY | 2025-09-01 17:34 | XMS_ITS | Encounter Summary ---
Author Organization [facility] r Address [address] [place] [address] Phone Care Team Providers Care Insurance Associate Name Role Phone Devan Mcbride MD, MPH Primary Care Provider [phone]- [phone] Reason for Visit * Reason Onset Date Comments Breast Mass 08/20/2025 Encounter Details Date Type Department Care Team (Late st Contact Info) Description 08/20/2025 Telephone [facility] MED[facility]INE [address] [place] [address] Devan Mcbride MD, MPH [address] [place] [address] Breast Mass Social History Tobacco Use Types Packs/Day Years Used Date Smoking Tobacco: Never Smokeless Tobacco: Never Alcohol Use Standard Drinks/Week Comments Not Currently 0 (1 standard drink = 0.6 oz pur e alcohol) Occasional Housing Answer Date Recorded What is your living situation today? I have a [facility] place to live 04/27/2025 Medications Answer Date Recorded Do you have trouble paying for prescriptions? Ye s 04/27/2025 Utilities Answer Date Recorded Do you have trouble paying f or utilites (heat, electricity, internet, or phone bill)? No 04/27/2025 Caregiving [place] Answer Date Recorded Taking care of a [...] or phone to manage your health (use PushCoin, see medical records, make appointments, get refills, [...] Encounter - Devan Mcbride MD, MPH - 08/24/2025 1:05 PM EST New referral orders placed. * Telephone Encounter - Lara Mabry MA - 08/20/2025 9:57 AM EST [facility] is requesting that new referrals be placed. Once they are placed they will be able to schedule an appointment for patient to be seen. PCP please sign the new referral. Thanks Lara documented in this encounter Plan of Treatment Upcoming Encounters Date Type Department Care Team (Late st Contact Info) Description 09/16/2025 10:40 AM EST Office Visit [address] [phone] China Gray PA-C [address] [place] [phone] 09/21/2025 10:15 AM EST Office Visit DIRECTOR OF EPIDEMIOLOGY [address] [place] [address], 5TH FLOOR [facility] [place] [address] Lisa Garcia MD [facility] [place] [address] 10/12/2025 11:00 AM EST Office Visit [address] [phone] Devan Mcbride MD, MPH [address] [place] [address] documented as of this encounter Visit Diagnoses Diagnosis Mass of upper outer quadrant of left breast- Primary documented in this encounter Additional Health Concerns Infection Onset Date Last Indicated Resolved Time COVID-19 Rule Out 12/12/2024 12/12/2024 documented as of this encounter Care Teams Insurance Associate Relationship Specialty Start Date End Date Devan Mcbride MD, MPH [address] [place] [address] PCP - General Family Medicine 10/06/24 documented as of this encounter
--- OUTSIDE RECORDS SUMMARY | 2025-09-01 17:34 | XMS_ITS | Encounter Summary ---
Author Organization [facility] r Address [address] [place] [address] Phone Care Team Providers Care Sewer Cleaner Name Role Phone Devan Mcbride MD, MPH Primary Care Provider +1- [phone] Encounter Details Date Type Department Care Team (Late st Contact Info) Description 02/04/2025 Telephone [facility] MEDICINE [facility] [place] [address] Devan Mcbride MD, MPH [facility] [place], [place] [phone] Social History Tobacco Use Types Packs/Day Years Used Date Smoking Tobacco: Never Smokeless Tobacco: Never Alcohol Use Standard Drinks/Week Comments Not Currently 0 (1 standard drink = 0.6 oz pur e alcohol) Occasional Housing Answer Date Recorded What is your living situation today? I have a [facility] to live 01/26/2025 Medications Answer Date Recorded Do you have trouble paying for prescriptions? No 01/26/2025 Utilities Answer Date Recorded Do you have trouble paying f or utilites (heat, electricity, internet, or phone bill)? No 01/26/2025 Caregiving [place] Answer Date Recorded Taking care of a [...] or phone to manage your health (use [employer], see medical records, make appointments, get refills, [...] * Telephone Encounter - Concha Ramos - 02/04/2025 11:56 AM EDT A FORM was [ ] requested [x ] dropped off at the health center. Type of Form : Blood Pressure log Date form was dropped off : 02/04/2025 Who received the form : Concha Ramos The following information was confirmed with the patient: PCP : Devan Mcbride MD, MPH HOME PHONE: [phone] MOBILE : Telephone Information: Date form needed by : Disposition : [ ] Patient to car pick up driver [ ] Mail to patient [ ] Mail to other address [ ] Fax to this number: Below address was confirmed: [address] [facility] [address] documented in this encounter Plan of Treatment Upcoming Encounters Date Type Department Care Team (Late st Contact Info) Description 09/16/2025 10:40 AM EST Office Visit [address] [phone] China Gray PA-C [address] [place] [phone] 09/21/2025 10:15 AM EST Office Visit [facility] [address] [place] [address], 5TH FLOOR [facility] [place] [address] Lisa Garcia MD [facility] [place] [address] 10/12/2025 11:00 AM EST Office Visit [address] [phone] Devan Mcbride MD, MPH [address] [place] [address] documented as of this encounter Visit Diagnoses Not on filedocumented in this encounter Additional Health Concerns Infection Onset Date Last Indicated Resolved Time COVID-19 Rule Out 12/12/2024 12/12/2024 documented as of this encounter Care Teams Sewer Cleaner Relationship Specialty Start Date End Date Devan Mcbride MD, MPH [address] [place] [address] PCP - General Family Medicine 10/06/24 documented as of this encounter
--- OUTSIDE RECORDS SUMMARY | 2025-09-01 17:34 | XMS_ITS | Encounter Summary ---
Author Organization [facility] r Address [address] [place] [address] Phone Care Team Providers Care A R Collections Rep Name Role Phone Devan Mcbride MD, MPH Primary Care Provider +1- [phone] Reason for Visit * Reason Onset Date Comments Er F/u 06/05/2024 Pelvic pain Pelv ic pain -- --Urinary tract infection without hematuria, site unspecified Encounter Details Date Type Department Care Team (Late st Contact Info) Description 06/05/2024 Telephone [facility] MEDICINE [address] [place] [address] Devan Mcbride MD, MPH [address] [place] [address] Er F/u (Pelvic pain Pelvic pain -- --/Urinary tract infection without hematuria, site unspecified //) Social History Tobacco Use Types Packs/Day Years Used Date Smoking Tobacco: Never Smokeless Tobacco: Never Alcohol Use Standard Drinks/Week Comments Not Currently 0 (1 standard drink = 0.6 oz pur e alcohol) Occasional Housing Answer Date Recorded What is your living situation today? I d on't have a steady place to live (living with others, hotel, skilled nursing, outside on the street, on a bench, in a car, abandoned building, bus or train station, in a park) 03/20/2024 Medications Answer Date Recorded Do you have trouble paying for prescriptions? No 02/25/2024 Utilities Answer Date Recorded Do you have trouble paying f or utilites (heat, electricity, internet, or phone bill)? No 02/25/2024 Caregiving [place] Answer Date Recorded Taking care of a [...] or phone to manage your health (use Hyperoptict, see medical records, make appointments, get refills, [...] Telephone Encounter - Magaly Hamilton MA - 06/05/2024 1:26 PM EDT Hospital Discharge and Admissions for [facility] Type of Visit:: Emergency Department Date of ED/UC Visit: 06/04/24 Date of ED/UC Discharge: 06/04/24 Facility:: [facility] Diagnosis Category/Categories: Medical Discharge Diagnosis: Pelvic pain Pelvic pain -- -- Urinary tract infection without hematuria, site unspecified Disposition:: Discharged Home Patient recently seen in ER. Based on ER follow up workflow, letter has been created and routed to letters pool for send out. documented in this encounter Plan of Treatment Upcoming Encounters Date Type Department Care Team (Late st Contact Info) Description 09/16/2025 10:40 AM EST Office Visit [address] [phone] China Gray PA-C [address] [place] [phone] 09/21/2025 10:15 AM EST Office Visit HUMAN SERVICE COORDINATOR [address] [place] [address], 5TH FLOOR [facility] [place] [address] [place] [address] 10/12/2025 11:00 AM EST Office Visit [address] [phone] Devan Mcbride MD, MPH [address] [place] [address] documented as of this encounter Visit Diagnoses Not on filedocumented in this encounter Additional Health Concerns Infection Onset Date Last Indicated Resolved Time COVID-19 Rule Out 10/06/2024 10/06/2024 10/06/2024 8:34 PM EST COVID-19 Rule Out 12/12/2024 12/12/2024 documented as of this encounter Care Teams A R Collections Rep Relationship Specialty Start Date End Date Devan Mcbride MD, MPH [address] [place] [address] PCP - General Family Medicine 10/06/24 documented as of this encounter
[2025-09-01 20:00] VITALS: BP 136/91; PULSE 83; RESP 16; TEMP 36.6; O2SAT 98
[2025-09-02 02:00] VITALS: BP 169/97; PULSE 79; RESP 18; TEMP 36.4; O2SAT 100
--- NOTE | 2025-09-02 02:05 | ECG_ITS ---
Test Reason : chest pain Blood Pressure : */* mmHG Vent. Rate : 66 BPM Atrial Rate : 66 BPM P-R Int : 130 ms QRS Dur : 82 ms QT Int : 440 ms P-R-T Axes : 45 58 22 degrees QTcB Int : 461 ms Normal sinus rhythm Normal ECG No previous ECGs available Referred By: Rayshawn Layne Electronically Signed By: Miki Hernandez
[2025-09-02 08:00] VITALS: BP 131/79; PULSE 81; RESP 16; TEMP 36.4; O2SAT 99
--- NOTE | 2025-09-02 08:17 | HO.PM.IMCN ---
History of Present Illness Data of Consult Service Date: 09/02/25 Primary Care Provider: Unknown Physician HPI Reason for consult: Medical H&P 35-year-old female with a past medical history of bipolar disorder, and HTN Presented to the emergency room at [facility] with an overdose of 50 tablets of 200 mg of ibuprofen. Initial evaluation revealed a normal metabolic panel, no alcohol, no acetaminophen no salicylate in her blood. No leukocytosis or anemia, negative HCG, negative viral panel, negative tox screen. EKG with normal sinus rhythm. Assisted in visit by advertising clerk Gertrudis. Patient reports that she has been recently treated for hypertension, her doctor took her off of her olmesartan and she has been monitoring her blood pressures. Her blood pressure is within reasonable control here this morning. 131/79 although she had some elevated blood pressures on admit. She has been reporting intermittent headaches as well. She otherwise has no concerns. Review of Systems Review of Systems: Denies any shortness of breath, chest pain, headaches, dysuria, abdominal pain or discomfort, nausea, vomiting or diarrhea. Denies fever or chills. PMFSH Social History Household Members: Other Household Members Other:: Boyfriend and boyfriend's friend. Housing: Apartment Do you presently have visiting nurse or other home services: No Patient Tobacco Use Status: Never used Tobacco Second Hand Smoke Exposure: No Currently Displaying Signs/Symptoms of Drug Intoxication Withdrawal: No Have you been hit, kicked, punched, or otherwise hurt by someone within the past year? If so, by whom?: No Do you feel safe in your current relationship?: No Is there a partner from a previous relationship who is making you feel unsafe now?: No Are you made to feel afraid or neglected: Yes Spiritual Healthcare Practices: Muslim Advance Directives: No Advance Directives Information Provided: Yes Do you have thoughts of harming others: None Do you have a plan to hurt others: No Plan Recently lost weight without trying: No Eating poorly because of decreased appetite: No Nutrition Risks: No Nutritional Risk Patient : No : No Poor oral hygiene: No service: No Sexual orientation: Straight/Heterosexual Meds Allergies Allergy/AdvReac Type Severity Reaction Status Date / Time No Known Allergies Allergy Verified 09/01/25 14:04 Active Medications: Current Medications Acetaminophen (Acetaminophen 325 Mg Tablet) 650 mg PO Q6H PRN PRN Reason: Headache/Pain, Scale 1-10 Last Admin: 09/02/25 02:03 Dose: 650 mg Al Hydroxide/Mg Hydroxide (Magnesium Hydrox/Alum Hydrox 30 Ml Oral.Susp) 30 ml PO Q6H PRN PRN Reason: Heartburn/Nausea Hydroxyzine HCl (Hydroxyzine Hcl 25 Mg Tablet) 25 mg PO Q6H PRN PRN Reason: mild anxiety Magnesium Hydroxide (Milk Of Magnesia 30 Ml Oral.Susp) 30 ml PO DAILY PRN PRN Reason: Constipation Nicotine (Nicotine 21 Mg Patch.Td24) 21 mg TRANSDERMA DAILY RUSTAM Nicotine Polacrilex (Nicotine Polacrilex 2 Mg Gum) 4 mg BUCCAL Q2H PRN PRN Reason: Nicotine Cravings Trazodone HCl (Trazodone Hcl 50 Mg Tablet) 50 mg PO BEDTIME MRX1 PRN PRN Reason: Insomnia Home Medications ?Medication ?Instructions ?Recorded ?Confirmed ?Last Taken ?Type clotrimazole 1 % topical cream 1 appl topical BID Fungus 09/01/25 09/01/25 2 Days Ago History (Antifungal (clotrimazole)) ~08/30/25 1 naproxen 500 mg tablet 500 mg PO BID 09/01/25 09/01/25 3 Months Ago History ~06/01/25 olmesartan 20 mg tablet 20 mg PO DAILY Hypertension 09/01/25 09/01/25 5 Months Ago History ~04/01/25 Physical Exam Vital Signs and Narrative: Vital Signs: Last Vital Signs Temp 97.6 F 09/02/25 02:00 Pulse 79 09/02/25 02:00 Resp 18 09/02/25 02:00 BP 169/97 H 09/02/25 02:00 Pulse Ox 100 09/02/25 02:00 O2 Del Method Room Air 09/02/25 02:00 BMI result Body Mass Index 30.3 Alert and oriented X3, calm and cooperative. Answers questions. Friendly and cooperative Neuro: CN II-X11 intact, no deficits, visual acuity intact EYES: PERRLA, EOM intact ENT: Hearing intact, MMM Cardiac: S1 S2 RRR, No ectopy Pulmonary: lungs clear to auscultation, No increased WOB. Abdominal: BS active in all 4 quadrants, no guarding or tenderness MSK: Strength 5/5 upper and lower extremities : Deferred Extremities: No edema in lower extremities Psych: Mood stable. Skin: Warm and dry, Intact Results Labs 09/02/25 08:12 Assessment and Plan (1) HTN (hypertension): Status: Acute Plan 35-year-old female with a past medical history listed below presented to the emergency room after an intentional overdose of ibuprofen. She is now admitted for inpatient psychiatric stabilization. Major depressive disorder/bipolar disorder/intentional overdose Treatment per psychiatric team Hypertension Patient's blood pressure is initially elevated on admit, now improved. Patient is reporting intermittent headaches which may be associated with elevated blood pressure. Patient also drinks coffee and has not coffee which may also be a contributing factor due to daily coffee consumption. Patient's home med his olmesartan 20. We will start on lower dose of valsartan at 40 mg Consider increasing to 80 mg of valsartan if blood pressures are not improved. Thank you for allowing me to participate in the care of this patient. Will follow with you, please notify medical provider with any changes in condition or concerns.
[2025-09-02 08:42] LABS: Alanine Aminotransferase 19 U/L (0-31); Albumin Level 4.7 g/dL (3.5-5.0); Alkaline Phosphatase 64 U/L (39-117); Anion Gap 12 (12-20); Aspartate Amino Transferase 21 U/L (5-31); Blood Urea Nitrogen 10 mg/dL (9-16); Calcium 9.6 mg/dL (8.4-10.2); Carbon Dioxide 27 mmol/L (22-29); Chloride 103 mmol/L (96-108); Cholesterol 218 mg/dL (<200); Creatinine Clr Calc Pharmacy 108.5; Estimated Glomerular Filt Rate > 60; HDL Cholesterol 37 mg/dL (>40); Potassium 4.4 mmol/L (3.3-5.1); Sodium 138 mmol/L (135-145); Total Protein 7.4 g/dL (6.5-8.0); Triglycerides 104 mg/dL (<150)
--- NOTE | 2025-09-02 12:18 | HO.PSYCHPN ---
Subjective Subjective Date of Service: 09/02/25 Reason For Visit: depression, unspecified Subjective Notes: 3 Day Interim History: Active on unit. social with Italian speaking peers. educational interpreter present. Patient reports feeling very good today; she continues to deny events prior to admission being a suicide attempt. Poor historian d/t pt giving various versions of what occurred prior to admission. Patient continues to state she does not want or need psychiatric medications. denies SI/HI/VH/AH. Attending Groups: Intermittent Mental Status Exam Mental Status Exam Patient Appearance: Appropriate Patient Orientation: Person, Place, Time and Situation Level of Consciousness: Awake and Alert Patient Behavior: Appropriate, Guarded, Cooperative and Good Eye Contact Mood Description: Anxious Affect Description: Anxious Ability to Follow Directions: Good Speech Pattern: Clear Memory Description: Intact Hallucinations: None Delusions: Not Present Thought Process: Intact Thought Content: positive for Intact Diagnostics Vital Signs (24Hr): Vital Signs - 24 hr 09/01/25 14:00 09/01/25 20:00 09/02/25 02:00 Temperature 97.9 F 97.9 F 97.6 F Pulse Rate 94 83 79 Respiratory Rate 18 16 18 Blood Pressure 172/94 H 136/91 H 169/97 H Pulse Oximetry 100 98 100 Oxygen Delivery Method Room Air Room Air Room Air 09/02/25 08:00 Temperature 97.5 F Pulse Rate 81 Respiratory Rate 16 Blood Pressure 131/79 Pulse Oximetry 99 Oxygen Delivery Method Room Air BMI result Body Mass Index 30.3 Labs 09/02/25 08:12 Labs: Laboratory Results - last 48 hr 09/02/25 08:12 Sodium 138 Potassium 4.4 Chloride 103 Carbon Dioxide 27 Anion Gap 12 BUN 10 Creatinine 0.78 Estim Creat Clear Calc 108.5 Estimated GFR > 60 Random Glucose 100 Estimat Average Glucose 117 Hemoglobin A1c % 5.7 Calcium 9.6 Total Bilirubin 0.7 AST 21 ALT 19 Alkaline Phosphatase 64 Total Protein 7.4 Albumin 4.7 Triglycerides 104 Cholesterol 218 H LDL Cholesterol, Calc 161 H HDL Cholesterol 37 L Medications Medications Current Medications Acetaminophen (Acetaminophen 325 Mg Tablet) 650 mg PO Q6H PRN PRN Reason: Headache/Pain, Scale 1-10 Last Admin: 09/02/25 09:54 Dose: 650 mg Al Hydroxide/Mg Hydroxide (Magnesium Hydrox/Alum Hydrox 30 Ml Oral.Susp) 30 ml PO Q6H PRN PRN Reason: Heartburn/Nausea Hydroxyzine HCl (Hydroxyzine Hcl 25 Mg Tablet) 25 mg PO Q6H PRN PRN Reason: mild anxiety Magnesium Hydroxide (Milk Of Magnesia 30 Ml Oral.Susp) 30 ml PO DAILY PRN PRN Reason: Constipation Nicotine Polacrilex (Nicotine Polacrilex 2 Mg Gum) 4 mg BUCCAL Q2H PRN PRN Reason: Nicotine Cravings Trazodone HCl (Trazodone Hcl 50 Mg Tablet) 50 mg PO BEDTIME MRX1 PRN PRN Reason: Insomnia Allergies Allergies Allergy/AdvReac Type Severity Reaction Status Date / Time No Known Allergies Allergy Verified 09/01/25 14:04 Assessment & Plan Assessment & Plan (1) MDD (major depressive disorder), recurrent episode, severe: Status: Acute Code(s): F33.2 - Major depressive disorder, recurrent severe without psychotic features Plan Patient is a 35 year old female with hx of Bipolar d/o, who presented to ER d/t overdose on ibuprofen secondary to verbal argument with boyfriend. Plan: CV 15 minute safety checks Obtain collateral Continue to discuss possible need of psychiatric medication Referral to outpatient psychiatric providers Encourage groups Discharge planning 09/02: Active on unit. social with Italian speaking peers. educational interpreter present. Patient reports feeling very good today; she continues to deny events prior to admission being a suicide attempt. Poor historian d/t pt giving various versions of what occurred prior to admission. Patient continues to state she does not want or need psychiatric medications. denies SI/HI/VH/AH. continue tx plan. Patient educated on: diagnosis and medication risk/benefits Reason for continued inpatient stay Substantial Risk for: med/psych decompensation Time Spent With Patient Time: Total time managing care of this patient today _20___ minutes.
[2025-09-02 20:00] VITALS: BP 146/96; PULSE 97; RESP 18; TEMP 37.6; O2SAT 97
[2025-09-03 07:00] VITALS: BMI 31.0
[2025-09-03 08:00] VITALS: BP 133/86; PULSE 86; RESP 16; TEMP 36.5; O2SAT 99
--- NOTE | 2025-09-03 08:18 | P.PNPSI_ITS ---
Subjective Subjective Date of Service: 09/03/25 Reason For Visit: depression, unspecified Interim History: Pt reports she did nit have an OD nor was suicidal. She reports she has been stressed about her current living situation, her financial situation which is limited by her immigration status. She reports she took ibuprofen for headache. She states her thought it was a suicide attempt and was worried but they have talked since and she has explained to him this is not the case. She reports it has not been easy to be here in the [place] with current immigration policies and TV news about ICE violently arresting people and violating their right to protect themselves. She states she has considered going back, but /partner with whom she has been for the past year is asking her to stay. She also reports she worries about her mother who is still in [place] and is elder. She worries that if she dies she is not able to go back to see her. She reports they had friend of her who was staying with them but he was very disrespectful to her and she was frustrated with not setting limits. She reports when police came to her house, she asked them if anyone speaks Ukrainian as she was not able to explain her situation. she expressed fear but frustration about being misinterpreted and adamantly denies that she was or is suicidal nor that she had an OD nor that she had a suicide attempt. Given this reasons, she declines medications as she sees her mood being affected by current circumstances, appropriately so, but not due to underlying depression. Review of Systems Review of Systems Denies any shortness of breath, chest pain, headaches, dysuria, abdominal pain or discomfort, nausea, vomiting or diarrhea. Denies fever or chills. Mental Status Exam Mental Status Exam Narrative: Appearance: wearing casual clothing, good hygiene, in NAD Behavior: cooperative Psychomotor: no agitation or retardation noted Speech: clear, normal rate/rhythm/volume, spontaneous TP: linear TC: without psychosis Mood: overwhelmed at times Affect: congruent SI: adamantly denies HI: none VH/AH: none Delusions: none Insight/judgment: intact x 2. memory/cog: alert, oriented x 4. grossly intact to conversational testing. Diagnostics Vital Signs (24Hr): Vital Signs - 24 hr 09/02/25 20:00 Temperature 99.7 F Pulse Rate 97 Respiratory Rate 18 Blood Pressure 146/96 H Pulse Oximetry 97 Oxygen Delivery Method Room Air BMI result Body Mass Index 30.3 Labs 09/02/25 08:12 Labs: Laboratory Results - last 48 hr 09/02/25 08:12 Sodium 138 Potassium 4.4 Chloride 103 Carbon Dioxide 27 Anion Gap 12 BUN 10 Creatinine 0.78 Estim Creat Clear Calc 108.5 Estimated GFR > 60 Random Glucose 100 Estimat Average Glucose 117 Hemoglobin A1c % 5.7 Calcium 9.6 Total Bilirubin 0.7 AST 21 ALT 19 Alkaline Phosphatase 64 Total Protein 7.4 Albumin 4.7 Triglycerides 104 Cholesterol 218 H LDL Cholesterol, Calc 161 H HDL Cholesterol 37 L Medications Medications Current Medications Acetaminophen (Acetaminophen 325 Mg Tablet) 650 mg PO Q6H PRN PRN Reason: Headache/Pain, Scale 1-10 Last Admin: 09/02/25 09:54 Dose: 650 mg Al Hydroxide/Mg Hydroxide (Magnesium Hydrox/Alum Hydrox 30 Ml Oral.Susp) 30 ml PO Q6H PRN PRN Reason: Heartburn/Nausea Hydroxyzine HCl (Hydroxyzine Hcl 25 Mg Tablet) 25 mg PO Q6H PRN PRN Reason: mild anxiety Magnesium Hydroxide (Milk Of Magnesia 30 Ml Oral.Susp) 30 ml PO DAILY PRN PRN Reason: Constipation Nicotine Polacrilex (Nicotine Polacrilex 2 Mg Gum) 4 mg BUCCAL Q2H PRN PRN Reason: Nicotine Cravings Trazodone HCl (Trazodone Hcl 50 Mg Tablet) 50 mg PO BEDTIME MRX1 PRN PRN Reason: Insomnia Valsartan (Valsartan 40 Mg Tablet) 40 mg PO DAILY RUSTAM; Protocol Allergies Allergies Allergy/AdvReac Type Severity Reaction Status Date / Time No Known Allergies Allergy Verified 09/01/25 14:04 Assessment & Plan Assessment & Plan (1) MDD (major depressive disorder), recurrent episode, severe: Status: Acute Code(s): F33.2 - Major depressive disorder, recurrent severe without psychotic features Plan Pt adamantly denies that she had an intentional OD or that she was or is suicidal. She does report several psychosocial stressors including her immigration status, financial stressors, being away from family. SBP better with valsartan. No behavioral concerns. If not done already, obtain collateral information with as if pt's story is truthful seems like she was sectioned based on misunderstanding due to language barrier. Reason for continued inpatient stay Substantial Risk for: inability to function Time Spent With Patient Time: Total time managing care of this patient today ____ minutes.
[2025-09-03 09:19] VITALS: BP 133/86
[2025-09-03 20:00] VITALS: BP 126/85; PULSE 80; RESP 16; TEMP 36.3; O2SAT 93
[2025-09-04 08:00] VITALS: BP 130/93; PULSE 75; RESP 20; TEMP 36.6; O2SAT 100
--- NOTE | 2025-09-04 11:15 | P.DS_ITS ---
DS: Providers Provider Date of Service: 09/04/25 Date of admission: 09/01/25 13:33 Date of discharge: 09/04/25 Primary care physician: Unknown Physician Consults: 09/01/25 14:05 Consult to Hospitalist Routine Comment: Consulting Provider: [facility] Reason For Exam: new admit, H&P DS: Diagnosis Discharge Diagnosis (1) MDD (major depressive disorder), recurrent episode, severe: Status: Acute DS: Medications Discharge Medications Home Medications: Home Medications ?Medication ?Instructions ?Recorded ?Confirmed clotrimazole 1 % topical cream 1 appl topical BID Sadie us 09/01/25 09/01/25 (Antifungal (clotrimazole)) naproxen 500 mg tablet 500 mg PO BID 09/01/2509/01 olmesartan 20 mg tablet 20 mg PO DAILY Hypertension 09/01/25 09/01/25 Mental Status Exam Mental Status Exam Narrative: Appearance: wearing casual clothing, good hygiene, in NAD Behavior: cooperative Psychomotor: no agitation or retardation noted Speech: clear, normal rate/rhythm/volume, spontaneous TP: linear TC: without psychosis Mood: overwhelmed at times Affect: congruent SI: adamantly denies HI: none VH/AH: none Delusions: none Insight/judgment: intact x 2. memory/cog: alert, oriented x 4. grossly intact to conversational testing. Data Data Completed and Pending Completed studies during hospitalization [Text1]: 09/02/25 08:12 Sodium 138 Potassium 4.4 Chloride 103 Carbon Dioxide 27 Anion Gap 12 BUN 10 Creatinine 0.78 Estim Creat Clear Calc 108.5 Estimated GFR > 60 Random Glucose 100 Estimat Average Glucose 117 Hemoglobin A1c % 5.7 Calcium 9.6 Total Bilirubin 0.7 AST 21 ALT 19 Alkaline Phosphatase 64 Total Protein 7.4 Albumin 4.7 Triglycerides 104 Cholesterol 218 H LDL Cholesterol, Calc 161 H HDL Cholesterol 37 L DS: Summary Hospital Course Hospital Course: Ms. Rodriguez is a 35 year-old woman who was brought to ED for suspected OD on ibuprofen. She adamantly denies that it was an intentional OD or accidental OD at all. She reports she took ibuprofen for a headache. She reports she has multiple stressors including immigration status which limits work she can do and affects her financially and difficulties with friend who was staying with her and her partner. Collateral information gathered from her partner who reports that initially he did not know why bottle of ibuprofen was empty and thought that she had OD. He reports that after talking with patient he had realized that she had not OD nor she intended to end her life. He said pt has stressors but overall has been able to manage them without any concern. Pt has been visible on the unit. She attended assigned groups. No SI/HI. No episodes of disruptive behaviors nor need for restraints. Sleeping and eating well. Future oriented, hopeful. Status at Discharge Cognitive/behavioral status at discharge: Pt with brighter, non labile affect. No SI/HI. No psychosis nor delusions. Sleeping and eating well. future oriented. Functional status at discharge: independent ambulation Overall status at discharge: patient is back to baseline Time Spent with Patient Time attestation: Total time managing care of this patient today __45__ minutes. Time spent: Greater than 30 minutes Discharge Plan Discharge Anticipated Discharge Date/Time: 09/04/25 11:39 Patient Disposition: Home, Self-Care Discharge Diagnosis: Adjustment disorder with anxious mood Referrals: PhysicianaMuricio [Primary Care Provider, Medical] - 1 Week Referral Note: Patient verbalized she will follow up with her PCP or utilize urgent care located near her primary residence Discharge Medications: Continued clotrimazole [Antifungal (clotrimazole)] 1 % cream 1 appl topical BID naproxen 500 mg tablet 500 mg PO BID olmesartan 20 mg tablet 20 mg PO DAILY Discharge Orders: Discharge Order (Routine); Ordered 09/04/25 Ordered By: Nidia Guzmán Diet: Regular diet Activity on Discharge: As tolerated Stand Alone Forms: Patient Portal Discharge page, Community Support Print Language: Bulgarian Care Plan Goals: 1. maintain mood No SI/HI Health Concerns: Ir al medico para el tratamiento de hipertension. Plan of Treatment: Sanam el medicamento de acuerdo a las instrucciones. Go to ER or call 911 if feeling unsafe Assessment: bright affect. No SI/HI. No depressed mood. No psychosis or delusions. Sleeping and eating well. Discharge Date/Time: 09/04/25 12:20
== END 2025-09-04 12:20 | disposition home or self-care (01) | DRG 755 ==
PROVIDERS: Admitting Provider Psychiatry & Neurology Psychiatry; Responsible Provider Registered Nurse; Visit Provider Psychiatry & Neurology Psychiatry
DX: F43.22 Adjustment disorder with anxiety (principal); F33.2 Major depressive disorder, recurrent severe without psychotic features; Z65.3 Problems related to other legal circumstances; Z91.51 Personal history of suicidal behavior; Z79.899 Other long term (current) drug therapy
CPT/HCPCS: 36415; 80053; 80061; 83036; 93005

== ENCOUNTER 2025-09-01 13:33 | Outpatient (BNV) | payer MEDICAID, SELFPAY | END 2025-09-02 02:05 | PROVIDERS: Admitting Provider Psychiatry & Neurology Psychiatry; Responsible Provider Registered Nurse; Visit Provider Internal Medicine Cardiovascular Disease | DX: R07.9 Chest pain, unspecified (principal) | CPT/HCPCS: 93010 ==

== ENCOUNTER → 2025-09-01 13:33 | Outpatient (BNV) | payer MEDICAID, SELFPAY | PROVIDERS: Admitting Provider Psychiatry & Neurology Psychiatry; Responsible Provider Registered Nurse; Visit Provider Nurse Practitioner Family | DX: I10 Essential (primary) hypertension (principal) | CPT/HCPCS: 99221 ==

== ENCOUNTER → 2025-09-01 13:33 | Outpatient (BNV) | payer MEDICAID, SELFPAY | PROVIDERS: Admitting Provider Psychiatry & Neurology Psychiatry; Responsible Provider Registered Nurse; Visit Provider Social Worker | DX: F33.2 Major depressive disorder, recurrent severe without psychotic features (principal) | CPT/HCPCS: 99232 ==